=== PATIENT | male | born 1980 | race Caucasian/White ===

== ENCOUNTER 2021-06-02 13:49 | Emergency (ER) | payer BC, OTHER ==
--- NOTE | 2021-06-02 15:04 | EDM.PDOC ---
ED HPI GENERAL MEDICAL PROBLEM - General Chief Complaint: Respiratory Problem Stated Complaint: COVID SX Time Seen by Provider: 06/02/21 14:06 Source of Information: Reports: Patient History Limitations: Reports: No Limitations - History of Present Illness INITIAL COMMENTS - FREE TEXT/NARRATIVE: 41-year-old male presents the emergency department with complaints of Covid-like symptoms that started 7 days ago. Patient states that he initially developed a low-grade temp of 100.2 and a cough. However cough has progressed to becoming more paroxysmal and he has coughed so much that he states his chest and abdomen are sore. He also notes sinus drainage however no sinus congestion. States he has developed some issues with diarrhea. Whenever he eats he states he has to go to the bathroom after with watery diarrhea stools. He has had some nausea however no vomiting. Also complains of generalized weakness. Patient states that prior to this he was otherwise healthy. He did not receive his Covid vaccines. His primary care provider was Dr. Villafana however Dr. Villafana has retired and he has not sought out a new primary care provider. He is not a smoker. - Related Data Allergies Allergy/AdvReac Type Severity Reaction Status Date / Time clarithromycin [From Biaxin] Allergy Stomach Verified 06/02/21 14:18 Upset Home Meds: Home Meds Benzonatate [Tessalon Perle] 100 mg PO TID PRN #12 capsule 06/02/21 [Rx] Ondansetron [Zofran ODT] 4 mg PO Q6H PRN #12 tab.dis 06/02/21 [Rx] dexAMETHasone [Dexamethasone] 6 mg PO DAILY #15 tablet 06/02/21 [Rx] Past Medical History - Past Health History Medical/Surgical History: Denies Medical/Surgical History HEENT History: Reports: Impaired Vision Other HEENT History: wears eyeglasses, dental surgery (wisdom teeth removal). Social & Family History - Tobacco Use Tobacco Use Status *Q: Never Tobacco User Second Hand Smoke Exposure: No - Caffeine Use Caffeine Use: Reports: Coffee - Recreational Drug Use Recreational Drug Use: No ED ROS GENERAL - Review of Systems Review Of Systems: Comprehensive ROS is negative, except as noted in HPI. ED EXAM, GENERAL - Physical Exam Exam: See Below Exam Limited By: No Limitations General Appearance: Alert, WD/WN, Mild Distress Ears: Normal External Exam, Hearing Grossly Normal Nose: Normal Inspection Throat/Mouth: Normal Inspection, Normal Lips, Normal Voice, No Airway Compromise Head: Atraumatic Neck: Normal Inspection, Supple Respiratory/Chest: No Respiratory Distress, Lungs Clear, No Accessory Muscle Use, Chest Non-Tender (Tender with palpation and cough), Decreased Breath Sounds. No: Normal Breath Sounds Cardiovascular: Normal Peripheral Pulses, Regular Rate, Rhythm, No Edema, No Murmur Peripheral Pulses: 2+: Radial (L), Radial (R) GI/Abdominal: Normal Bowel Sounds, Soft, Non-Tender, No Distention (Male) Exam: Deferred Rectal (Males) Exam: Deferred Back Exam: Normal Inspection Extremities: Normal Inspection Neurological: Alert, Oriented, Normal Cognition Psychiatric: Normal Affect, Normal Mood Skin Exam: Warm, Dry, Intact, Normal Color, No Rash Lymphatic: No Adenopathy Course - Vital Signs Text/Narrative:: As stated above, patient presents here for testing for Covid. Symptoms started 8 days ago. He is hemodynamically stable with O2 saturations at 96% on room air. Upon exam, patient does have a paroxysmal cough with any inspiration. Lung sounds are diminished throughout. I have ordered for the patient to have Covid testing completed. Last Recorded V/S: Last Vital Signs Temp Pulse 98 06/02/21 14:15 Resp 18 06/02/21 14:15 BP 123/89 06/02/21 14:15 Pulse Ox 96 06/02/21 14:15 - Orders/Labs/Meds Labs: Laboratory Tests 06/02/21 Range/Units 14:25 SARS-CoV-2 RNA (NATHANIEL) Positive H (NEGATIVE) - Re-Assessments/Exams Free Text/Narrative Re-Assessment/Exam: 06/02/21 15:34 Patient Covid swab is positive for Covid. He will be discharged home with prescriptions for Zofran ODT, Tessalon Perles, and dexamethasone. While in the emergency department he will receive an albuterol inhaler as well as incentive spirometer and Acapella. Departure - Departure Time of Disposition: 15:35 Disposition: Home, Self-Care 01 Condition: Good Clinical Impression: COVID-19 - Discharge Information Prescriptions: dexAMETHasone [Dexamethasone] 6 mg PO DAILY #15 tablet Benzonatate [Tessalon Perle] 100 mg PO TID PRN #12 capsule PRN Reason: Cough Ondansetron [Zofran ODT] 4 mg PO Q6H PRN #12 tab.dis PRN Reason: Nausea/Vomiting Instructions: COVID-19: Quarantine vs. Isolation - [facility] [place] (08/31/2020) Referrals: Katelyn Conteh, [facility] [Primary Care Provider] - Forms: ED Department Discharge Additional Instructions: You were seen in the emergency department today with Covid type symptoms. Covid swab was completed and you did test positive for Covid. While you are in the emergency department you did receive an albuterol inhaler. You may use this 2 puffs every 2-4 hours as needed for shortness of breath. Keep in mind that if you are using this every 2 hours the side effect of the medication is racing heart. Also recommend that you use the incentive spirometer and Acapella as instructed by the respiratory therapist. I have sent prescription to your pharmacy for a medication called Zofran ODT. This medication is used to treat nausea and vomiting. You may take 1 tab every 6 hours as needed. Do not swallow this medication whole. You place it under your tongue and allow to dissolve and then wait approximately 30 minutes before eating and drinking. I have also sent a medication prescription for Tessalon Perles. This medication is used to treat cough. You may take 1-2 tabs up to 3 times daily for your cough. Recommend taking 1 at bedtime to allow restful sleep. I have also sent a medication that is a steroid called dexamethasone to your pharmacy. You will need to take 1-1/2 tabs daily for the next 10 days. This medication will likely help to decrease the inflammation associated with Covid. Should your condition worsen or change or you develop significant shortness of breath, do not hesitate returning to the emergency department. You will need to quarantine for 10 days time from the onset of your symptoms. Also recommend that you receive the Covid vaccine in about 5 weeks. Sepsis Event Note (ED) - Evaluation Sepsis Screening Result: No Definite Risk - Focused Exam Vital Signs: Vital Signs Pulse Resp BP Pulse Ox 06/02/21 14:15 98 18 123/89 96
[2021-06-02] MEDS ORDERED: Albuterol 6.7 GM Inhaler INH ONE (15:35)
== END 2021-06-02 16:00 | disposition home or self-care (01) ==
LOC: SUPCPDRO 13:49 → JD.ED 13:49
DX: U07.1 COVID-19 (principal); Z88.1 Allergy status to other antibiotic agents
CPT/HCPCS: 87635; 94640; 94667; 99284; A9270; 99283; U0002

== ENCOUNTER 2021-06-05 08:01 | Inpatient (IN) | payer BC ==
--- NOTE | 2021-06-05 08:44 | EDM.PDOC ---
ED HPI GENERAL MEDICAL PROBLEM - General Chief Complaint: Respiratory Problem Stated Complaint: COVID + SOB Time Seen by Provider: 06/05/21 08:02 Source of Information: Reports: Patient History Limitations: Reports: No Limitations - History of Present Illness INITIAL COMMENTS - FREE TEXT/NARRATIVE: 41-year-old male presents the emergency department with complaints of worsening Covid symptoms. Patient was seen in this emergency department on 06/02/2021 and diagnosed with Covid. He states that his symptoms initially started on 05/26/2021. He was subsequently discharged to home with prescriptions for dexamethasone 6 mg daily, albuterol inhaler, Tessalon Perles and Zofran. Patient states that he has not been febrile. His appetite has been fair. He states that he no longer is needing the Zofran for nausea and vomiting. He states his diarrhea has resolved however his shortness of breath and coughing has progressively worsened. He states that last night he woke and went down to sleep on the recliner. States he used his albuterol inhaler 3 times and was still unable to catch his breath. He then went to lay on the floor in the prone position but states he became more short of breath. He presents to the ER this morning. Initially at the time of triage after ambulating into the room, his O2 saturations were 77% on room air. Once he was sitting there and resting O2 saturations came up to 86% on room air. Triage nurse then elected to place the patient on 2 L of oxygen per nasal cannula. Patient does admit to a history of smoking however he stopped back in 2014. He states he is otherwise healthy and does not take any prescription medications. His primary care provider was Dr. Villafana who has since retired and he has not found a new primary care provider. Chest Pain Score (Numeric/FACES): 5 - Related Data Allergies Allergy/AdvReac Type Severity Reaction Status Date / Time clarithromycin [From Biaxin] Allergy Stomach Verified 06/05/21 08:22 Upset Home Meds: Home Meds Benzonatate [Tessalon Perle] 100 mg PO TID PRN #12 capsule 06/02/21 [Rx] Ondansetron [Zofran ODT] 4 mg PO Q6H PRN #12 tab.dis 06/02/21 [Rx] dexAMETHasone [Dexamethasone] 6 mg PO DAILY #15 tablet 06/02/21 [Rx] Albuterol Sulfate [Proair Digihaler] 2 puff INH ASDIRECTED 06/05/21 [History] Past Medical History - Past Health History Medical/Surgical History: Denies Medical/Surgical History HEENT History: Reports: Impaired Vision Other HEENT History: wears eyeglasses, dental surgery (wisdom teeth removal). - Infectious Disease History Infectious Disease History: Reports: Novel Coronavirus Social & Family History - Caffeine Use Caffeine Use: Reports: Coffee ED ROS GENERAL - Review of Systems Review Of Systems: Comprehensive ROS is negative, except as noted in HPI. ED EXAM, GENERAL - Physical Exam Exam: See Below Exam Limited By: No Limitations General Appearance: Alert, WD/WN, Mild Distress Ears: Normal External Exam, Hearing Grossly Normal Nose: Normal Inspection Throat/Mouth: Normal Inspection, Normal Lips, Normal Voice, No Airway Compromise Head: Atraumatic Neck: Normal Inspection, Supple Respiratory/Chest: No Accessory Muscle Use, Chest Non-Tender, Respiratory Distress, Decreased Breath Sounds, Crackles (Posterior) Cardiovascular: Normal Peripheral Pulses, Regular Rate, Rhythm, No Edema, No Murmur Peripheral Pulses: 2+: Radial (L), Radial (R) GI/Abdominal: Normal Bowel Sounds, Soft, Non-Tender, No Distention (Male) Exam: Deferred Rectal (Males) Exam: Deferred Back Exam: Normal Inspection, Full Range of Motion Extremities: Normal Inspection Neurological: Alert, Oriented, Normal Cognition Psychiatric: Normal Affect, Normal Mood Skin Exam: Warm, Dry, Intact, Normal Color, No Rash Lymphatic: No Adenopathy #1 Interpretation EKG Date: 06/05/21 Time: 10:03 Rhythm: NSR Rate (Beats/Min): 64 [place]: Normal P-Wave: Present QRS: Normal ST-T: Normal QT: Normal Comparison: NA - No Prior EKG EKG Interpretation Comments: Per Dr. Goodman interpretation: Sinus rhythm at 64 bpm; short [place] interval; no obvious accessory pathway. Course - Vital Signs Text/Narrative:: As stated above, patient presents with worsening Covid symptoms. Main complaint is progressively worsening shortness of breath and cough. Upon exam, the patient is awake and alert in bed however he is dyspneic at rest. O2 saturations on 2 L of oxygen per nasal cannula are 96%. He does have crackles noted bilaterally and the remainder of his physical exam is otherwise unremarkable. He is afebrile. Will obtain a portable chest x-ray, labs to include CBC, BMP, hepatic function studies, LDH, ferritin, D-dimer, PT/INR and PTT. Last Recorded V/S: Last Vital Signs Temp 97.9 F 06/05/21 13:46 Pulse 72 06/05/21 13:46 Resp 18 06/05/21 13:46 BP 136/80 06/05/21 13:46 Pulse Ox 92 L 06/05/21 13:46 - Orders/Labs/Meds Orders: Active Orders 24 hr Category Date Time Status PROCALCITONIN [REF] Stat Lab 06/05/21 08:55 Received Isolation [COMM] Stat Oth 06/05/21 08:43 Ordered Medication Orders Acetaminophen (Acetaminophen 325 Mg Tab) 650 mg PO Q4H PRN PRN Reason: Pain (Mild 1-3)/fever Albuterol (Albuterol 6.7 Gm Inhaler) 0 gm INH Q2H PRN PRN Reason: SOB/Wheezing Albuterol/Ipratropium (Albuterol/Ipratropium 3.0-0.5 Mg/3 Ml Neb Soln) 3 ml NEB QIDRT PRN PRN Reason: Shortness Of Breath/wheezing Dexamethasone (Dexamethasone 4 Mg Tab) 6 mg PO DAILY ARMIDA Stop: 06/14/21 09:01 Docusate Sodium (Docusate Sodium 100 Mg Cap) 100 mg PO Q12H PRN PRN Reason: Constipation Enoxaparin Sodium (Enoxaparin 40 Mg/0.4 Ml Syringe) 40 mg SUBCUT DAILY [facility] [place] Famotidine (Famotidine 20 Mg Tab) 20 mg PO BID [facility] [place] Remdesivir 100 mg/ Sodium (Chloride) 100 mls @ 100 mls/hr IV Q24H ARMIDA Stop: 06/09/21 13:59 Ondansetron HCl (Ondansetron 4 Mg/2 Ml Sdv) 4 mg IV Q6H PRN PRN Reason: Nausea/Vomiting Zinc Sulfate (Zinc Sulfate 220 Mg Cap) 220 mg PO DAILY [facility] [place] Labs: Laboratory Tests 06/05/21 06/05/21 06/05/21 Range/Units 08:55 08:55 08:55 WBC 11.45 H (4.23-9.07) K/mm3 RBC 5.32 (4.63-6.08) M/mm3 Hgb 14.8 (13.7-17.5) gm/dl Hct 44.3 (40.1-51.0) % MCV 83.3 (79.0-92.2) fl MCH 27.8 (25.7-32.2) pg MCHC 33.4 (32.2-35.5) g/dl RDW Std Deviation 38.8 (35.1-43.9) fL Plt Count 189 (163-337) K/mm3 MPV 10.9 (9.4-12.3) fl Neut % (Auto) 91.9 H (34.0-67.9) % Lymph % (Auto) 4.2 L (21.8-53.1) % [place] % (Auto) 3.5 L (5.3-12.2) % Eos % (Auto) 0 L (0.8-7.0) Baso % (Auto) 0.1 (0.1-1.2) % Neut # (Auto) 10.53 H (1.78-5.38) K/mm3 Lymph # (Auto) 0.48 L (1.32-3.57) K/mm3 [place] # (Auto) 0.40 (0.30-0.82) K/mm3 Eos # (Auto) 0.00 L (0.04-0.54) K/mm3 Baso # (Auto) 0.01 (0.01-0.08) K/mm3 PT 10.9 (9.7-12.0) SECONDS INR 0.98 APTT 25.8 (21.7-31.4) SECONDS D-Dimer, Quantitative (0.19-0.50) mg/L Sodium (136-145) mEq/L Potassium (3.5-5.1) mEq/L Chloride (98-107) mEq/L Carbon Dioxide (21-32) mEq/L Anion Gap (5-15) BUN (7-18) mg/dL Creatinine (0.7-1.3) mg/dL Est Cr Clr Drug Dosing mL/min Estimated GFR (MDRD) (>60) mL/min BUN/Creatinine Ratio (14-18) Glucose (70-99) mg/dL Calcium (8.5-10.1) mg/dL Ferritin 2383 H (26-388) ng/ml Total Bilirubin (0.2-1.0) mg/dL Direct Bilirubin (0.0-0.2) mg/dl Indirect Bilirubin AST (15-37) U/L ALT (16-63) U/L Alkaline Phosphatase (46-116) U/L Lactate Dehydrogenase (85-227) U/L C-Reactive Protein (<1.0) mg/dL Total Protein (6.4-8.2) g/dl Albumin (3.4-5.0) g/dl Globulin gm/dL Albumin/Globulin Ratio (1-2) 06/05/21 06/05/21 Range/Units 08:55 08:55 WBC (4.23-9.07) K/mm3 RBC (4.63-6.08) M/mm3 Hgb (13.7-17.5) gm/dl Hct (40.1-51.0) % MCV (79.0-92.2) fl MCH (25.7-32.2) pg MCHC (32.2-35.5) g/dl RDW Std Deviation (35.1-43.9) fL Plt Count (163-337) K/mm3 MPV (9.4-12.3) fl Neut % (Auto) (34.0-67.9) % Lymph % (Auto) (21.8-53.1) % [place] % (Auto) (5.3-12.2) % Eos % (Auto) (0.8-7.0) Baso % (Auto) (0.1-1.2) % Neut # (Auto) (1.78-5.38) K/mm3 Lymph # (Auto) (1.32-3.57) K/mm3 [place] # (Auto) (0.30-0.82) K/mm3 Eos # (Auto) (0.04-0.54) K/mm3 Baso # (Auto) (0.01-0.08) K/mm3 PT (9.7-12.0) SECONDS INR APTT (21.7-31.4) SECONDS D-Dimer, Quantitative 0.29 (0.19-0.50) mg/L Sodium 132 L (136-145) mEq/L Potassium 4.6 (3.5-5.1) mEq/L Chloride 96 L (98-107) mEq/L Carbon Dioxide 30 (21-32) mEq/L Anion Gap 10.6 (5-15) BUN 20 H (7-18) mg/dL Creatinine 1.0 (0.7-1.3) mg/dL Est Cr Clr Drug Dosing 99.36 mL/min Estimated GFR (MDRD) > 60 (>60) mL/min BUN/Creatinine Ratio 20.0 H (14-18) Glucose 159 H (70-99) mg/dL Calcium 8.5 (8.5-10.1) mg/dL Ferritin (26-388) ng/ml Total Bilirubin 0.4 (0.2-1.0) mg/dL Direct Bilirubin 0.10 (0.0-0.2) mg/dl Indirect Bilirubin 0.30 AST 31 (15-37) U/L ALT 54 (16-63) U/L Alkaline Phosphatase 55 (46-116) U/L Lactate Dehydrogenase 412 H (85-227) U/L C-Reactive Protein 17.3 H* (<1.0) mg/dL Total Protein 7.8 (6.4-8.2) g/dl Albumin 3.2 L (3.4-5.0) g/dl Globulin 4.6 gm/dL Albumin/Globulin Ratio 0.7 L (1-2) Meds: Medications Generic Name Dose Route Start Last Admin Trade Name Freq PRN Reason Stop Dose Admin Acetaminophen 650 mg 06/05/21 12:12 Acetaminophen 325 Mg Tab PO Q4H PRN Pain (Mild 1-3)/fever Albuterol 0 gm 06/05/21 12:12 Albuterol 6.7 Gm Inhaler INH Q2H PRN SOB/Wheezing Albuterol/Ipratropium 3 ml 06/05/21 12:12 Albuterol/Ipratropium 3.0-0.5 Mg/3 Ml Neb Soln NEB QIDRT PRN Shortness Of Breath/wheezing Dexamethasone 6 mg 06/05/21 13:00 Dexamethasone 4 Mg Tab PO 06/14/21 09:01 DAILY ARMIDA Docusate Sodium 100 mg 06/05/21 12:12 Docusate Sodium 100 Mg Cap PO Q12H PRN Constipation Enoxaparin Sodium 40 mg 06/06/21 09:00 Enoxaparin 40 Mg/0.4 Ml Syringe SUBCUT DAILY ARMIDA Famotidine 20 mg 06/05/21 13:00 Famotidine 20 Mg Tab PO BID ARMIDA Remdesivir 100 mg/ Sodium 100 mls @ 100 mls/hr 06/06/21 13:00 Chloride IV 06/09/21 13:59 Q24H ARMIDA Ondansetron HCl 4 mg 06/05/21 12:12 Ondansetron 4 Mg/2 Ml Sdv IV Q6H PRN Nausea/Vomiting Zinc Sulfate 220 mg 06/05/21 13:00 Zinc Sulfate 220 Mg Cap PO DAILY ARMIDA Discontinued Medications Generic Name Dose Route Start Last Admin Trade Name Freq PRN Reason Stop Dose Admin Remdesivir 200 mg/ Sodium 250 mls @ 250 mls/hr 06/05/21 13:00 Chloride IV 06/05/21 13:59 ONETIME ONE - Re-Assessments/Exams Free Text/Narrative Re-Assessment/Exam: 06/05/21 09:21 Portable view of the chest reveals scattered infiltrates bilaterally consistent with Covid pneumonia. Formal radiologist report is pending 06/05/21 09:59 Radiologist impression frontal view of the chest: 1. Patchy areas of increased density on both sides of the chest is an interval change from prior exam. Findings are suspicious for possible Covid pneumonia. Please correlate. 06/05/21 10:46 Hematology reveals a WBC of 11.45, hemoglobin 14.8, hematocrit 44.3, platelet count 189 Coagulation reveals a pro time of 10.9, INR 0.98, PTT 25.8 Chemistry reveals a sodium of 132, potassium 4.6, chloride 96, anion gap 10.6, BUN 20, creatinine 1.0, glucose 159, C-reactive protein 17.3 06/05/21 12:01 I feel that this patient does need to be admitted to the hospital due to his increasing oxygen needs due to Covid. I have spoken to the hospitalist, , and he has agreed to accept care of this patient. Departure - Departure Time of Disposition: 12:40 Disposition: Admitted As Inpatient 66 Condition: Good (covid ) Clinical Impression: Pneumonia due to COVID-19 virus, Hypoxia - Discharge Information Sepsis Event Note (ED) - Focused Exam Vital Signs: Vital Signs Temp Pulse Resp BP Pulse Ox 06/05/21 08:17 97.7 F 70 18 141/90 H 77 L - My Orders Last 24 Hours: My Active Orders 06/05/21 08:43 Isolation [COMM] Stat 06/05/21 08:55 PROCALCITONIN [REF] Stat - Assessment/Plan Last 24 Hours: My Active Orders 06/05/21 08:43 Isolation [COMM] Stat 06/05/21 08:55 PROCALCITONIN [REF] Stat
--- NOTE | 2021-06-05 09:56 | CR ---
Chest: Frontal view of the chest was obtained. Comparison: Prior chest x-ray of 08/11/14. Heart size and mediastinum are normal. Patchy areas of increased density are seen on both sides of the chest. Bony structures show nothing acute. Impression: 1. Patchy areas of increased density on both sides of the chest as an interval change from prior exam. Findings are suspicious for possible COVID pneumonia. Please correlate. Diagnostic code #3
--- NOTE | 2021-06-05 11:55 | PCM.HP.2 ---
H&P History of Present Illness - General Date of Service: 06/05/21 Admit Problem/Dx: Admission Diagnosis/Problem Admission Diagnosis/Problem Hypoxia Source of Information: Patient, Old Records, Provider, RN, RN Notes Reviewed History Limitations: Reports: No Limitations Chest Pain Score (Numeric/FACES): 5 - Related Data Allergies/Adverse Reactions: Allergies Allergy/AdvReac Type Severity Reaction Status Date / Time clarithromycin [From Biaxin] Allergy Stomach Verified 06/05/21 08:22 Upset Home Medications: Home Meds Benzonatate [Tessalon Perle] 100 mg PO TID PRN #12 capsule 06/02/21 [Rx] Ondansetron [Zofran ODT] 4 mg PO Q6H PRN #12 tab.dis 06/02/21 [Rx] dexAMETHasone [Dexamethasone] 6 mg PO DAILY #15 tablet 06/02/21 [Rx] Albuterol Sulfate [Proair Digihaler] 2 puff INH ASDIRECTED 06/05/21 [History] Past Medical History - Past Health History Medical/Surgical History: Denies Medical/Surgical History HEENT History: Reports: Impaired Vision Other HEENT History: wears eyeglasses, dental surgery (wisdom teeth removal). - Infectious Disease History Infectious Disease History: Reports: Novel Coronavirus Social & Family History - Caffeine Use Caffeine Use: Reports: Coffee Exam - Vital Signs Vital Signs: Last Vital Signs Temp 97.7 F 06/05/21 08:17 Pulse 70 06/05/21 08:17 Resp 18 06/05/21 08:17 BP 141/90 H 06/05/21 08:17 Pulse Ox 77 L 06/05/21 08:17 Weight: 214 lb - Patient Data Lab Results Last 24 hrs: Laboratory Results - last 24 hr 06/05/21 06/05/21 06/05/21 Range/Units 08:55 08:55 08:55 WBC 11.45 H (4.23-9.07) K/mm3 RBC 5.32 (4.63-6.08) M/mm3 Hgb 14.8 (13.7-17.5) gm/dl Hct 44.3 (40.1-51.0) % MCV 83.3 (79.0-92.2) fl MCH 27.8 (25.7-32.2) pg MCHC 33.4 (32.2-35.5) g/dl RDW Std Deviation 38.8 (35.1-43.9) fL Plt Count 189 (163-337) K/mm3 MPV 10.9 (9.4-12.3) fl Neut % (Auto) 91.9 H (34.0-67.9) % Lymph % (Auto) 4.2 L (21.8-53.1) % [place] % (Auto) 3.5 L (5.3-12.2) % Eos % (Auto) 0 L (0.8-7.0) Baso % (Auto) 0.1 (0.1-1.2) % Neut # (Auto) 10.53 H (1.78-5.38) K/mm3 Lymph # (Auto) 0.48 L (1.32-3.57) K/mm3 [place] # (Auto) 0.40 (0.30-0.82) K/mm3 Eos # (Auto) 0.00 L (0.04-0.54) K/mm3 Baso # (Auto) 0.01 (0.01-0.08) K/mm3 PT 10.9 (9.7-12.0) SECONDS INR 0.98 APTT 25.8 (21.7-31.4) SECONDS D-Dimer, Quantitative 0.29 (0.19-0.50) mg/L Sodium (136-145) mEq/L Potassium (3.5-5.1) mEq/L Chloride (98-107) mEq/L Carbon Dioxide (21-32) mEq/L Anion Gap (5-15) BUN (7-18) mg/dL Creatinine (0.7-1.3) mg/dL Est Cr Clr Drug Dosing mL/min Estimated GFR (MDRD) (>60) mL/min BUN/Creatinine Ratio (14-18) Glucose (70-99) mg/dL Calcium (8.5-10.1) mg/dL Total Bilirubin (0.2-1.0) mg/dL AST (15-37) U/L ALT (16-63) U/L Alkaline Phosphatase (46-116) U/L C-Reactive Protein (<1.0) mg/dL Total Protein (6.4-8.2) g/dl Albumin (3.4-5.0) g/dl Globulin gm/dL Albumin/Globulin Ratio (1-2) 06/05/21 Range/Units 08:55 WBC (4.23-9.07) K/mm3 RBC (4.63-6.08) M/mm3 Hgb (13.7-17.5) gm/dl Hct (40.1-51.0) % MCV (79.0-92.2) fl MCH (25.7-32.2) pg MCHC (32.2-35.5) g/dl RDW Std Deviation (35.1-43.9) fL Plt Count (163-337) K/mm3 MPV (9.4-12.3) fl Neut % (Auto) (34.0-67.9) % Lymph % (Auto) (21.8-53.1) % [place] % (Auto) (5.3-12.2) % Eos % (Auto) (0.8-7.0) Baso % (Auto) (0.1-1.2) % Neut # (Auto) (1.78-5.38) K/mm3 Lymph # (Auto) (1.32-3.57) K/mm3 [place] # (Auto) (0.30-0.82) K/mm3 Eos # (Auto) (0.04-0.54) K/mm3 Baso # (Auto) (0.01-0.08) K/mm3 PT (9.7-12.0) SECONDS INR APTT (21.7-31.4) SECONDS D-Dimer, Quantitative (0.19-0.50) mg/L Sodium 132 L (136-145) mEq/L Potassium 4.6 (3.5-5.1) mEq/L Chloride 96 L (98-107) mEq/L Carbon Dioxide 30 (21-32) mEq/L Anion Gap 10.6 (5-15) BUN 20 H (7-18) mg/dL Creatinine 1.0 (0.7-1.3) mg/dL Est Cr Clr Drug Dosing 99.36 mL/min Estimated GFR (MDRD) > 60 (>60) mL/min BUN/Creatinine Ratio 20.0 H (14-18) Glucose 159 H (70-99) mg/dL Calcium 8.5 (8.5-10.1) mg/dL Total Bilirubin 0.4 (0.2-1.0) mg/dL AST 31 (15-37) U/L ALT 54 (16-63) U/L Alkaline Phosphatase 55 (46-116) U/L C-Reactive Protein 17.3 H* (<1.0) mg/dL Total Protein 7.8 (6.4-8.2) g/dl Albumin 3.2 L (3.4-5.0) g/dl Globulin 4.6 gm/dL Albumin/Globulin Ratio 0.7 L (1-2) Result Diagrams: 06/05/21 08:55 06/05/21 08:55 Sepsis Event Note - Focused Exam Vital Signs: Vital Signs Temp Pulse Resp BP Pulse Ox 06/05/21 08:17 97.7 F 70 18 141/90 H 77 L Problem List Initiated/Reviewed/Updated: Yes Orders Last 24hrs: Active Orders 24 hr Category Date Time Status Admission Status [Patient Status] [ADT] Routine ADT 06/05/21 11:51 Active BASIC METABOLIC PANEL,BMP [CHEM] Stat Lab 06/05/21 08:55 Results C-REACTIVE PROTEIN [CHEM] Stat Lab 06/05/21 08:55 Results FERRITIN [CHEM] Routine Lab 06/05/21 08:55 Received HEPATIC FUNCTION PANEL,HFP [CHEM] Stat Lab 06/05/21 08:55 Results LACTATE DEHYDROGENASE,LDH [CHEM] Stat Lab 06/05/21 08:55 Results PROCALCITONIN [REF] Stat Lab 06/05/21 08:55 Received Isolation [COMM] Stat Oth 06/05/21 08:43 Ordered - Mortality Measure Prognosis:: Good
[2021-06-05] MEDS ORDERED: Docusate Sodium 100 MG Cap PO PRN (12:12)
[2021-06-05] MEDS ORDERED: Acetaminophen 325 MG Tab PO PRN (12:12)
[2021-06-05] MEDS ORDERED: Albuterol/Ipratropium 3.0-0.5 MG/3 ML Neb Soln NEB PRN (12:12)
[2021-06-05] MEDS ORDERED: Ondansetron 4 MG/2 ML SDV IV PRN (12:12)
[2021-06-05] MEDS ORDERED: Dexamethasone 4 MG Tab PO SCH (13:00)
[2021-06-05] MEDS ORDERED: Zinc Sulfate 220 MG Cap PO SCH (13:00)
[2021-06-05] MEDS ORDERED: Famotidine 20 MG Tab PO SCH (13:00)
[2021-06-05] MEDS ORDERED: REMDESIVIR 200 MG in Sodium Chloride 0.9% 250 ML IV ONE (13:00)
--- NOTE | 2021-06-05 13:05 | PCM.HP.2 ---
H&P History of Present Illness - General Date of Service: 06/05/21 Admit Problem/Dx: Admission Diagnosis/Problem Admission Diagnosis/Problem Hypoxia Source of Information: Patient, Old Records, Provider, RN, RN Notes Reviewed History Limitations: Reports: No Limitations - History of Present Illness Initial Comments - Free Text/Narative: This is a 41-year-old male who presents to the ED with worsening COVID-19 pneumonia symptoms. His symptoms began on 05/27/21. He had previously been seen in the ED on 06/02/21 at which time he was diagnosed with COVID-19. At his ED visit on 06/02/21 he was started on dexamethasone 6mg daily, albuterol MDI, Tessalon Pearls, and Zofran. At that time he reported symptoms of nausea, vomiting, diarrhea, shortness of breath, and coughing. Today he reports that his nausea/vomiting have subsided, but his cough and shortness of breath have prog ressively worsened. Upon arrival to the ED his oxygen saturation was 86% at rest and 77% with ambu lation. He was placed on 2 L oxygen. Oxygen saturation improved to 96% on 2L. In the ED, he is afebrile, dyspneic at rest, and lung sounds were noted to have crackles bilaterally. Labs were obtained and demonstrated a WBC of 11.45 with an elevated neutrophil level of 91.9%. Lymphocyte level low of 4.2%. Hemoglobin 14.8. D-dimer 0.29. CRP elevated at 17.3. Sodium 132. Potassium 4.6. Chloride 96. BUN 20. Creatinine 1.0. GFR estimated to be >60. AST 31. ALT 54. Alkaline phosphatase 55. Albumin 2.7. LDH 412. Lactic acid 1.0. Ferritin 2383. Chest x- ray was obtained which revealed 1. Patchy areas of increased density on both sides of the chest is an interval change from prior exam. Findings are suspicious for possible COVID pneumonia. Of note, the patient is a former smoker- quit in 2004. He is subsequently admitted to the floor on telemetry and continuous pulse oximetry for further management of his COVID-19 pneumonia symptoms. Chest Pain Score (Numeric/FACES): 5 - Related Data Allergies/Adverse Reactions: Allergies Allergy/AdvReac Type Severity Reaction Status Date / Time clarithromycin [From Biaxin] Allergy Stomach Verified 06/05/21 08:22 Upset Home Medications: Home Meds Benzonatate [Tessalon Perle] 100 mg PO TID PRN #12 capsule 06/02/21 [Rx] Ondansetron [Zofran ODT] 4 mg PO Q6H PRN #12 tab.dis 06/02/21 [Rx] dexAMETHasone [Dexamethasone] 6 mg PO DAILY #15 tablet 06/02/21 [Rx] Albuterol Sulfate [Proair Digihaler] 2 puff INH ASDIRECTED 06/05/21 [History] Past Medical History - Past Health History Medical/Surgical History: Denies Medical/Surgical History HEENT History: Reports: Impaired Vision Other HEENT History: wears eyeglasses, dental surgery (wisdom teeth removal). - Infectious Disease History Infectious Disease History: Reports: Novel Coronavirus Social & Family History - Caffeine Use Caffeine Use: Reports: Coffee H&P Review of Systems - Review of Systems: Review Of Systems: See Below General: Reports: Weakness, Fatigue. Denies: Fever, Chills, Malaise HEENT: Reports: Rhinitis. Denies: Headaches, Sore Throat Pulmonary: Reports: Shortness of Breath, Pleuritic Chest Pain, Cough, Sputum (minimal ). Denies: Wheezing, Hemoptysis Cardiovascular: Reports: Dyspnea on Exertion. Denies: Chest Pain, Palpitations, Edema, Lightheadedness Gastrointestinal: Reports: No Symptoms. Denies: Abdominal Pain, Constipation, Diarrhea, Nausea, Vomiting Genitourinary: Reports: No Symptoms. Denies: Pain Musculoskeletal: Reports: No Symptoms Skin: Reports: No Symptoms. Denies: Cyanosis Psychiatric: Reports: No Symptoms. Denies: Confusion Neurological: Reports: No Symptoms. Denies: Confusion, Dizziness, Headache, Numbness, Pre-Existing Deficit, Seizure, Syncope, Tingling, Trouble Speaking, Difficulty Walking, Weakness, Gait Disturbance Hematologic/Lymphatic: Reports: No Symptoms Immunologic: Reports: No Symptoms Exam - Exam Exam: See Below - Vital Signs Vital Signs: Last Vital Signs Temp 97.7 F 06/05/21 08:17 Pulse 70 06/05/21 08:17 Resp 18 06/05/21 08:17 BP 141/90 H 06/05/21 08:17 Pulse Ox 77 L 06/05/21 08:17 Weight: 214 lb - Exam Quality Assessment: Supplemental Oxygen, DVT Prophylaxis. No: Urinary Catheter General: Alert, Oriented, Cooperative, Mild Distress HEENT: Conjunctiva Clear, Mucosa Moist & [place], Pupils Equal Neck: Supple, Trachea Midline Lungs: Normal Respiratory Effort, Decreased Breath Sounds. No: Crackles, Wheezing Cardiovascular: Regular Rate, Regular Rhythm GI/Abdominal Exam: Normal Bowel Sounds, Soft, Non-Tender, No Distention (Male) Exam: Deferred Rectal (Males) Exam: Deferred Back Exam: Normal Inspection, Full Range of Motion Extremities: Normal Inspection, Normal Range of Motion, Non-Tender, No Pedal Edema Peripheral Pulses: 2+: Radial (L), Radial (R), Dorsalis Pedis (L), Dorsalis Pedis (R) Skin: Warm, Dry, Intact Neurological: Cranial Nerves Intact (grossly) Neuro Extensive - Mental Status: Alert, Oriented x3, Normal Mood/Affect, Normal Cognition Psychiatric: Alert, Normal Affect, Normal Mood - Patient Data Lab Results Last 24 hrs: Laboratory Results - last 24 hr 06/05/21 06/05/21 06/05/21 Range/Units 08:55 08:55 08:55 WBC 11.45 H (4.23-9.07) K/mm3 RBC 5.32 (4.63-6.08) M/mm3 Hgb 14.8 (13.7-17.5) gm/dl Hct 44.3 (40.1-51.0) % MCV 83.3 (79.0-92.2) fl MCH 27.8 (25.7-32.2) pg MCHC 33.4 (32.2-35.5) g/dl RDW Std Deviation 38.8 (35.1-43.9) fL Plt Count 189 (163-337) K/mm3 MPV 10.9 (9.4-12.3) fl Neut % (Auto) 91.9 H (34.0-67.9) % Lymph % (Auto) 4.2 L (21.8-53.1) % [place] % (Auto) 3.5 L (5.3-12.2) % Eos % (Auto) 0 L (0.8-7.0) Baso % (Auto) 0.1 (0.1-1.2) % Neut # (Auto) 10.53 H (1.78-5.38) K/mm3 Lymph # (Auto) 0.48 L (1.32-3.57) K/mm3 [place] # (Auto) 0.40 (0.30-0.82) K/mm3 Eos # (Auto) 0.00 L (0.04-0.54) K/mm3 Baso # (Auto) 0.01 (0.01-0.08) K/mm3 PT 10.9 (9.7-12.0) SECONDS INR 0.98 APTT 25.8 (21.7-31.4) SECONDS D-Dimer, Quantitative 0.29 (0.19-0.50) mg/L Sodium (136-145) mEq/L Potassium (3.5-5.1) mEq/L Chloride (98-107) mEq/L Carbon Dioxide (21-32) mEq/L Anion Gap (5-15) BUN (7-18) mg/dL Creatinine (0.7-1.3) mg/dL Est Cr Clr Drug Dosing mL/min Estimated GFR (MDRD) (>60) mL/min BUN/Creatinine Ratio (14-18) Glucose (70-99) mg/dL Calcium (8.5-10.1) mg/dL Total Bilirubin (0.2-1.0) mg/dL AST (15-37) U/L ALT (16-63) U/L Alkaline Phosphatase (46-116) U/L C-Reactive Protein (<1.0) mg/dL Total Protein (6.4-8.2) g/dl Albumin (3.4-5.0) g/dl Globulin gm/dL Albumin/Globulin Ratio (1-2) 06/05/21 Range/Units 08:55 WBC (4.23-9.07) K/mm3 RBC (4.63-6.08) M/mm3 Hgb (13.7-17.5) gm/dl Hct (40.1-51.0) % MCV (79.0-92.2) fl MCH (25.7-32.2) pg MCHC (32.2-35.5) g/dl RDW Std Deviation (35.1-43.9) fL Plt Count (163-337) K/mm3 MPV (9.4-12.3) fl Neut % (Auto) (34.0-67.9) % Lymph % (Auto) (21.8-53.1) % [place] % (Auto) (5.3-12.2) % Eos % (Auto) (0.8-7.0) Baso % (Auto) (0.1-1.2) % Neut # (Auto) (1.78-5.38) K/mm3 Lymph # (Auto) (1.32-3.57) K/mm3 [place] # (Auto) (0.30-0.82) K/mm3 Eos # (Auto) (0.04-0.54) K/mm3 Baso # (Auto) (0.01-0.08) K/mm3 PT (9.7-12.0) SECONDS INR APTT (21.7-31.4) SECONDS D-Dimer, Quantitative (0.19-0.50) mg/L Sodium 132 L (136-145) mEq/L Potassium 4.6 (3.5-5.1) mEq/L Chloride 96 L (98-107) mEq/L Carbon Dioxide 30 (21-32) mEq/L Anion Gap 10.6 (5-15) BUN 20 H (7-18) mg/dL Creatinine 1.0 (0.7-1.3) mg/dL Est Cr Clr Drug Dosing 99.36 mL/min Estimated GFR (MDRD) > 60 (>60) mL/min BUN/Creatinine Ratio 20.0 H (14-18) Glucose 159 H (70-99) mg/dL Calcium 8.5 (8.5-10.1) mg/dL Total Bilirubin 0.4 (0.2-1.0) mg/dL AST 31 (15-37) U/L ALT 54 (16-63) U/L Alkaline Phosphatase 55 (46-116) U/L C-Reactive Protein 17.3 H* (<1.0) mg/dL Total Protein 7.8 (6.4-8.2) g/dl Albumin 3.2 L (3.4-5.0) g/dl Globulin 4.6 gm/dL Albumin/Globulin Ratio 0.7 L (1-2) Result Diagrams: 06/05/21 08:55 06/05/21 08:55 Sepsis Event Note - Focused Exam Vital Signs: Vital Signs Temp Pulse Resp BP Pulse Ox 06/05/21 08:17 97.7 F 70 18 141/90 H 77 L - Problem List (1) Leukocytosis SNOMED Code(s): 834610236, 319264982 ICD Code: D72.829 - ELEVATED WHITE BLOOD CELL COUNT, UNSPECIFIED Status: Acute Priority: High Current Visit: Yes Qualifiers: Leukocytosis type: unspecified Qualified Code(s): D72.829 - Elevated white blood cell count, unspecified (2) Hypoxia SNOMED Code(s): 284342291 ICD Code: R09.02 - HYPOXEMIA Status: Acute Priority: High Current Visit: Yes (3) Elevated C-reactive protein (CRP) SNOMED Code(s): 872167282957450 ICD Code: R79.82 - ELEVATED C-REACTIVE PROTEIN (CRP) Status: Acute Priority: High Current Visit: Yes (4) Acute respiratory failure SNOMED Code(s): 42402958 ICD Code: J96.00 - ACUTE RESPIRATORY FAILURE, UNSP W HYPOXIA OR HYPERCAPNIA Status: Acute Priority: High Current Visit: Yes Qualifiers: Respiratory failure complication: hypoxia Qualified Code(s): J96.01 - Acute respiratory failure with hypoxia (5) Shortness of breath SNOMED Code(s): 558703254 ICD Code: R06.02 - SHORTNESS OF BREATH Status: Acute Priority: High Current Visit: Yes (6) Former smoker SNOMED Code(s): 9756807 ICD Code: Z87.891 - PERSONAL HISTORY OF NICOTINE DEPENDENCE Status: Chronic Priority: Low Current Visit: No (7) COVID-19 SNOMED Code(s): 276670110 ICD Code: U07.1 - COVID-19 Status: Acute Priority: High Current Visit: Yes Problem List Initiated/Reviewed/Updated: Yes Orders Last 24hrs: Active Orders 24 hr Category Date Time Status Admission Status [Patient Status] [ADT] Routine ADT 06/05/21 11:51 Active Cardiac Monitoring [RC] CONTINUOUS Care 06/05/21 12:12 Active Height and Weight [RC] DAILY Care 06/05/21 12:12 Active Intake and Output [RC] DAILY Care 06/05/21 12:12 Active Oxygen Therapy [RC] ASDIRECTED Care 06/05/21 12:12 Active Positioning, Patient [RC] ASDIRECTED Care 06/05/21 12:15 Active Pulse Oximetry [RC] CONTINUOUS Care 06/05/21 12:12 Active RT Aerosol Therapy [RC] ASDIRECTED Care 06/05/21 12:13 Active RT Chest Physiotherapy [RC] ASDIRECTED Care 06/05/21 12:12 Active RT Incentive Spirometry [RC] ASDIRECTED Care 06/05/21 12:12 Active Up ad Shanda [RC] ASDIRECTED Care 06/05/21 12:12 Active Vital Signs [RC] Q6H Care 06/05/21 12:12 Active Respiratory Care Assess and Treatment [CONS] Routine Cons 06/05/21 12:14 Active Regular Diet [DIET] Diet 06/05/21 Lunch Active BASIC METABOLIC PANEL,BMP [CHEM] Stat Lab 06/05/21 08:55 Results BLOOD CULTURE [MREF] Stat Lab 06/05/21 12:40 Received BLOOD CULTURE [MREF] Stat Lab 06/05/21 12:45 Received C-REACTIVE PROTEIN [CHEM] AM Lab 06/06/21 05:11 Ordered C-REACTIVE PROTEIN [CHEM] AM Lab 06/07/21 05:11 Ordered C-REACTIVE PROTEIN [CHEM] AM Lab 06/08/21 05:11 Ordered C-REACTIVE PROTEIN [CHEM] AM Lab 06/09/21 05:11 Ordered C-REACTIVE PROTEIN [CHEM] Stat Lab 06/05/21 08:55 Results CBC WITH AUTO DIFF [HEME] AM Lab 06/06/21 05:11 Ordered CBC WITH AUTO DIFF [HEME] AM Lab 06/07/21 05:11 Ordered CBC WITH AUTO DIFF [HEME] AM Lab 06/08/21 05:11 Ordered CBC WITH AUTO DIFF [HEME] AM Lab 06/09/21 05:11 Ordered COMPREHENSIVE METABOLIC PN,CMP [CHEM] AM Lab 06/06/21 05:11 Ordered COMPREHENSIVE METABOLIC PN,CMP [CHEM] AM Lab 06/07/21 05:11 Ordered COMPREHENSIVE METABOLIC PN,CMP [CHEM] AM Lab 06/08/21 05:11 Ordered COMPREHENSIVE METABOLIC PN,CMP [CHEM] AM Lab 06/09/21 05:11 Ordered D-DIMER QUANTITATIVE [COAG] Q48H Lab 06/07/21 05:11 Ordered D-DIMER QUANTITATIVE [COAG] Q48H Lab 06/09/21 05:11 Ordered D-DIMER QUANTITATIVE [COAG] Q48H Lab 06/11/21 05:11 Ordered FERRITIN [CHEM] Routine Lab 06/05/21 08:55 Received HEPATIC FUNCTION PANEL,HFP [CHEM] Stat Lab 06/05/21 08:55 Results LACTATE DEHYDROGENASE,LDH [CHEM] Stat Lab 06/05/21 08:55 Results LACTIC ACID [CHEM] Routine Lab 06/05/21 12:40 Received MAGNESIUM [CHEM] AM Lab 06/06/21 05:11 Ordered MAGNESIUM [CHEM] AM Lab 06/07/21 05:11 Ordered MAGNESIUM [CHEM] AM Lab 06/08/21 05:11 Ordered MAGNESIUM [CHEM] AM Lab 06/09/21 05:11 Ordered PROCALCITONIN [REF] Stat Lab 06/05/21 08:55 Received VITAMIN D,25-HYDROXY [CHEM] Routine Lab 06/05/21 12:40 Received Acetaminophen [TylenoL] Med 06/05/21 12:12 Active 650 mg PO Q4H PRN Albuterol [Proventil HFA] Med 06/05/21 12:12 Active See Dose Instructions INH Q2H PRN Albuterol/Ipratropium [DuoNeb 3.0-0.5 MG/3 ML] Med 06/05/21 12:12 Active 3 ml NEB QIDRT PRN Docusate Sodium [Colace] Med 06/05/21 12:12 Active 100 mg PO Q12H PRN Enoxaparin [Lovenox] Med 06/06/21 09:00 Active 40 mg SUBCUT DAILY Famotidine [Pepcid] Med 06/05/21 13:00 Active 20 mg PO BID Ondansetron [Zofran] Med 06/05/21 12:12 Active 4 mg IV Q6H PRN Remdesivir 100 mg Med 06/06/21 13:00 Active Sodium Chloride 0.9% [Normal Saline] 100 ml IV Q24H Remdesivir 200 mg Med 06/05/21 13:00 Active Sodium Chloride 0.9% [Normal Saline] 250 ml IV ONETIME Zinc Sulfate [Zincate] Med 06/05/21 13:00 Active 220 mg PO DAILY dexAMETHasone Med 06/05/21 13:00 Active 6 mg PO DAILY Blood Culture x2 Reflex Set [OM.PC] Stat Oth 06/05/21 12:16 Ordered Isolation [COMM] Stat Oth 06/05/21 08:43 Ordered Resuscitation Status Routine Resus Stat 06/05/21 12:12 Ordered Medication Orders Acetaminophen (Acetaminophen 325 Mg Tab) 650 mg PO Q4H PRN PRN Reason: Pain (Mild 1-3)/fever Albuterol (Albuterol 6.7 Gm Inhaler) 0 gm INH Q2H PRN PRN Reason: SOB/Wheezing Albuterol/Ipratropium (Albuterol/Ipratropium 3.0-0.5 Mg/3 Ml Neb Soln) 3 ml NEB QIDRT PRN PRN Reason: Shortness Of Breath/wheezing Dexamethasone (Dexamethasone 4 Mg Tab) 6 mg PO DAILY ARMIDA Stop: 06/14/21 09:01 Docusate Sodium (Docusate Sodium 100 Mg Cap) 100 mg PO Q12H PRN PRN Reason: Constipation Enoxaparin Sodium (Enoxaparin 40 Mg/0.4 Ml Syringe) 40 mg SUBCUT DAILY ARMIDA Famotidine (Famotidine 20 Mg Tab) 20 mg PO BID ARMIDA Remdesivir 200 mg/ Sodium (Chloride) 250 mls @ 250 mls/hr IV ONETIME ONE Stop: 06/05/21 13:59 Remdesivir 100 mg/ Sodium (Chloride) 100 mls @ 100 mls/hr IV Q24H ARMIDA Stop: 06/09/21 13:59 Ondansetron HCl (Ondansetron 4 Mg/2 Ml Sdv) 4 mg IV Q6H PRN PRN Reason: Nausea/Vomiting Zinc Sulfate (Zinc Sulfate 220 Mg Cap) 220 mg PO DAILY [facility] Assessment/Plan Comment:: Assessment - day of admission 06/05/2021 * 41-year-old male who presents to the ED with worsening COVID-19 pneumonia symptoms * Symptoms began on 05/27/21. * Had previously been seen in the ED on 06/02/21 at which time he was diagnosed with COVID-19. * At his ED visit on 06/02/21 he was started on dexamethasone 6mg daily, albuterol MDI, Tessalon Pearls, and Zofran. * Labs were obtained: * WBC of 11.45 * Elevated neutrophil level of 91.9% * Lymphocyte level low of 4.2%. * Hemoglobin 14.8. * D-dimer 0.29. * CRP elevated at 17.3. * Sodium 132. * Potassium 4.6. * Chloride 96. * BUN 20. Creatinine 1.0. GFR estimated to be >60. * AST 31. ALT 54. Alkaline phosphatase 55. * Albumin 2.7. * LDH 412. * Lactic acid 1.0. * Ferritin 2383. * Chest x-ray was obtained which revealed 1. Patchy areas of increased density on both sides of the chest is an interval change from prior exam. Findings are suspicious for possible COVID pneumonia. * Of note, the patient is a former smoker- quit in 2004. * He is subsequently admitted to the floor on telemetry and continuous pulse oximetry for further management of his COVID-19 pneumonia symptoms. PLAN: COVID-19 Leukocytosis Hypoxia Elevated C-reactive protein (CRP) Acute respiratory failure Shortness of breath * O2 as needed to keep oxygen saturation between 88-95% * RT consult * Telemetry * Dexamethasone- day 11/22 (patient on prior) * Remdesevir- day 09/19 * Zinc supplementation * Albuterol MDI PRN * Acapella/IS * DuoNeb as needed * He is ambulatory in room so we will hold off PT/OT for now * Twice daily scheduled Mucinex * Airborne/contact precautions * Continuous pulse oximetry * Prone whenever able * Ambulate around room * Daily labs * Famotidine 20 mg twice daily * Every 48 hour D-dimer * Check vitamin D level * Procalcitonin pending * Blood cultures pending * PRN Mark Mallory Former smoker * No acute concerns Code status: Full PCP: Was seeing Dr. Villafana. Needs to establish new PCP DVT prophylaxis: Lovneox Disposition: Admitted to medical floor for management of COVID-19 pneumonia symptoms with failed outpatient treatment. Likely length of stay 4 to 5 days pending improvement. - Mortality Measure Prognosis:: Good
[2021-06-05] MEDS: Zinc Sulfate 220 MG Cap PO SCH (14:34)
[2021-06-05] MEDS: Dexamethasone 4 MG Tab PO SCH (14:34)
[2021-06-05] MEDS: Famotidine 20 MG Tab PO SCH ×2 (14:34→20:29)
[2021-06-05] MEDS ORDERED: Benzonatate 100 MG Cap PO PRN (14:38)
[2021-06-05] MEDS: Albuterol 6.7 GM Inhaler INH PRN ×2 (15:01→20:33)
[2021-06-05] MEDS: guaiFENesin 600 MG Tab.ER PO SCH (20:28)
[2021-06-06] MEDS: Albuterol 6.7 GM Inhaler INH PRN ×4 (05:59→20:02)
[2021-06-06] MEDS: Enoxaparin 40 MG/0.4 ML Syringe SUBCUT SCH (08:21)
[2021-06-06] MEDS: Famotidine 20 MG Tab PO SCH ×2 (08:21→21:19)
[2021-06-06] MEDS: Zinc Sulfate 220 MG Cap PO SCH (08:22)
[2021-06-06] MEDS: guaiFENesin 600 MG Tab.ER PO SCH ×2 (08:22→21:19)
[2021-06-06] MEDS: Dexamethasone 4 MG Tab PO SCH (08:22)
--- NOTE | 2021-06-06 10:04 | PCM.PN ---
<Taisha Glasgow E - Last Filed: 06/06/21 11:00> - General Info Date of Service: 06/06/21 Functional Status: Reports: Pain Controlled, Tolerating Diet, Ambulating, Incentive Spirometry (Acapella) - Review of Systems General: Reports: Weakness, Fatigue. Denies: Fever, Chills, Night Sweats HEENT: Reports: No Symptoms. Denies: Headaches, Sore Throat, Rhinitis Pulmonary: Reports: Shortness of Breath, Pleuritic Chest Pain, Cough, Sputum. Denies: Wheezing Cardiovascular: Reports: Dyspnea on Exertion. Denies: Chest Pain, Palpitations, Edema, Lightheadedness Gastrointestinal: Reports: No Symptoms. Denies: Abdominal Pain, Constipation, Diarrhea, Nausea, Vomiting Genitourinary: Reports: No Symptoms. Denies: Dysuria, Frequency, Pain Musculoskeletal: Reports: No Symptoms Skin: Reports: No Symptoms. Denies: Cyanosis Neurological: Reports: No Symptoms. Denies: Confusion, Dizziness, Headache, Syncope Psychiatric: Reports: No Symptoms. Denies: Confusion, Depression - Patient Data Vitals - Most Recent: Last Vital Signs Temp 98.4 F 06/06/21 09:30 Pulse 60 06/06/21 09:30 Resp 20 06/06/21 09:30 BP 100/69 06/06/21 09:30 Pulse Ox 90 L 06/06/21 09:30 Weight - Most Recent: 210 lb 6.4 oz I&O - Last 24 Hours: Intake & Output 06/05/21 06/06/21 06/06/21 22:59 06:59 14:59 Intake Total 1040 1600 Output Total 0 Balance 1040 1600 Lab Results Last 24 Hours: Laboratory Results - last 24 hr 06/05/21 06/05/21 06/05/21 Range/Units 08:55 08:55 08:55 WBC (4.23-9.07) K/mm3 RBC (4.63-6.08) M/mm3 Hgb (13.7-17.5) gm/dl Hct (40.1-51.0) % MCV (79.0-92.2) fl MCH (25.7-32.2) pg MCHC (32.2-35.5) g/dl RDW Std Deviation (35.1-43.9) fL Plt Count (163-337) K/mm3 MPV (9.4-12.3) fl Neut % (Auto) (34.0-67.9) % Lymph % (Auto) (21.8-53.1) % [place] % (Auto) (5.3-12.2) % Eos % (Auto) (0.8-7.0) Baso % (Auto) (0.1-1.2) % Neut # (Auto) (1.78-5.38) K/mm3 Lymph # (Auto) (1.32-3.57) K/mm3 [place] # (Auto) (0.30-0.82) K/mm3 Eos # (Auto) (0.04-0.54) K/mm3 Baso # (Auto) (0.01-0.08) K/mm3 Manual Slide Review PT 10.9 (9.7-12.0) SECONDS INR 0.98 APTT 25.8 (21.7-31.4) SECONDS D-Dimer, Quantitative 0.29 (0.19-0.50) mg/L Sodium (136-145) mEq/L Potassium (3.5-5.1) mEq/L Chloride (98-107) mEq/L Carbon Dioxide (21-32) mEq/L Anion Gap (5-15) BUN (7-18) mg/dL Creatinine (0.7-1.3) mg/dL Est Cr Clr Drug Dosing mL/min Estimated GFR (MDRD) (>60) mL/min BUN/Creatinine Ratio (14-18) Glucose (70-99) mg/dL Lactic Acid (0.4-2.0) mmol/L Calcium (8.5-10.1) mg/dL Magnesium (1.8-2.4) mg/dL Ferritin 2383 H (26-388) ng/ml Total Bilirubin (0.2-1.0) mg/dL Direct Bilirubin (0.0-0.2) mg/dl Indirect Bilirubin AST (15-37) U/L ALT (16-63) U/L Alkaline Phosphatase (46-116) U/L Lactate Dehydrogenase (85-227) U/L C-Reactive Protein (<1.0) mg/dL Total Protein (6.4-8.2) g/dl Albumin (3.4-5.0) g/dl Globulin gm/dL Albumin/Globulin Ratio (1-2) Vitamin D 25-Hydroxy (30.0-100.0) ng/ml Procalcitonin ng/mL 06/05/21 06/05/21 06/05/21 Range/Units 08:55 08:55 12:40 WBC (4.23-9.07) K/mm3 RBC (4.63-6.08) M/mm3 Hgb (13.7-17.5) gm/dl Hct (40.1-51.0) % MCV (79.0-92.2) fl MCH (25.7-32.2) pg MCHC (32.2-35.5) g/dl RDW Std Deviation (35.1-43.9) fL Plt Count (163-337) K/mm3 MPV (9.4-12.3) fl Neut % (Auto) (34.0-67.9) % Lymph % (Auto) (21.8-53.1) % [place] % (Auto) (5.3-12.2) % Eos % (Auto) (0.8-7.0) Baso % (Auto) (0.1-1.2) % Neut # (Auto) (1.78-5.38) K/mm3 Lymph # (Auto) (1.32-3.57) K/mm3 [place] # (Auto) (0.30-0.82) K/mm3 Eos # (Auto) (0.04-0.54) K/mm3 Baso # (Auto) (0.01-0.08) K/mm3 Manual Slide Review PT (9.7-12.0) SECONDS INR APTT (21.7-31.4) SECONDS D-Dimer, Quantitative (0.19-0.50) mg/L Sodium (136-145) mEq/L Potassium (3.5-5.1) mEq/L Chloride (98-107) mEq/L Carbon Dioxide (21-32) mEq/L Anion Gap (5-15) BUN (7-18) mg/dL Creatinine (0.7-1.3) mg/dL Est Cr Clr Drug Dosing mL/min Estimated GFR (MDRD) (>60) mL/min BUN/Creatinine Ratio (14-18) Glucose (70-99) mg/dL Lactic Acid 1.0 (0.4-2.0) mmol/L Calcium (8.5-10.1) mg/dL Magnesium (1.8-2.4) mg/dL Ferritin (26-388) ng/ml Total Bilirubin (0.2-1.0) mg/dL Direct Bilirubin 0.10 (0.0-0.2) mg/dl Indirect Bilirubin 0.30 AST (15-37) U/L ALT (16-63) U/L Alkaline Phosphatase (46-116) U/L Lactate Dehydrogenase 412 H (85-227) U/L C-Reactive Protein (<1.0) mg/dL Total Protein (6.4-8.2) g/dl Albumin (3.4-5.0) g/dl Globulin gm/dL Albumin/Globulin Ratio (1-2) Vitamin D 25-Hydroxy (30.0-100.0) ng/ml Procalcitonin 0.53 H ng/mL 06/05/21 06/06/21 06/06/21 Range/Units 12:40 04:42 04:42 WBC 9.27 H (4.23-9.07) K/mm3 RBC 5.31 (4.63-6.08) M/mm3 Hgb 14.7 (13.7-17.5) gm/dl Hct 45.3 (40.1-51.0) % MCV 85.3 (79.0-92.2) fl MCH 27.7 (25.7-32.2) pg MCHC 32.5 (32.2-35.5) g/dl RDW Std Deviation 40.5 (35.1-43.9) fL Plt Count 199 (163-337) K/mm3 MPV 11.4 (9.4-12.3) fl Neut % (Auto) 87.9 H (34.0-67.9) % Lymph % (Auto) 6.0 L (21.8-53.1) % [place] % (Auto) 5.9 (5.3-12.2) % Eos % (Auto) 0 L (0.8-7.0) Baso % (Auto) 0.1 (0.1-1.2) % Neut # (Auto) 8.14 H (1.78-5.38) K/mm3 Lymph # (Auto) 0.56 L (1.32-3.57) K/mm3 [place] # (Auto) 0.55 (0.30-0.82) K/mm3 Eos # (Auto) 0.00 L (0.04-0.54) K/mm3 Baso # (Auto) 0.01 (0.01-0.08) K/mm3 Manual Slide Review Normal smear PT (9.7-12.0) SECONDS INR APTT (21.7-31.4) SECONDS D-Dimer, Quantitative (0.19-0.50) mg/L Sodium 135 L (136-145) mEq/L Potassium 4.7 (3.5-5.1) mEq/L Chloride 97 L (98-107) mEq/L Carbon Dioxide 30 (21-32) mEq/L Anion Gap 12.7 (5-15) BUN 22 H (7-18) mg/dL Creatinine 0.8 (0.7-1.3) mg/dL Est Cr Clr Drug Dosing 124.20 mL/min Estimated GFR (MDRD) > 60 (>60) mL/min BUN/Creatinine Ratio 27.5 H (14-18) Glucose 144 H (70-99) mg/dL Lactic Acid (0.4-2.0) mmol/L Calcium 8.6 (8.5-10.1) mg/dL Magnesium 2.7 H (1.8-2.4) mg/dL Ferritin (26-388) ng/ml Total Bilirubin 0.4 (0.2-1.0) mg/dL Direct Bilirubin (0.0-0.2) mg/dl Indirect Bilirubin AST 30 (15-37) U/L ALT 57 (16-63) U/L Alkaline Phosphatase 58 (46-116) U/L Lactate Dehydrogenase (85-227) U/L C-Reactive Protein 13.2 H* (<1.0) mg/dL Total Protein 7.7 (6.4-8.2) g/dl Albumin 2.9 L (3.4-5.0) g/dl Globulin 4.8 gm/dL Albumin/Globulin Ratio 0.6 L (1-2) Vitamin D 25-Hydroxy 49.4 (30.0-100.0) ng/ml Procalcitonin ng/mL Med Orders - Current: Current Medications Acetaminophen (Acetaminophen 325 Mg Tab) 650 mg PO Q4H PRN PRN Reason: Pain (Mild 1-3)/fever Albuterol (Albuterol 6.7 Gm Inhaler) 0 gm INH Q2H PRN PRN Reason: SOB/Wheezing Last Admin: 06/06/21 08:14 Dose: 2 puff Documented by: Albuterol/Ipratropium (Albuterol/Ipratropium 3.0-0.5 Mg/3 Ml Neb Soln) 3 ml NEB QIDRT PRN PRN Reason: Shortness Of Breath/wheezing Benzonatate (Benzonatate 100 Mg Cap) 100 mg PO TID PRN PRN Reason: Cough Last Admin: 06/05/21 20:29 Dose: 100 mg Documented by: Dexamethasone (Dexamethasone 4 Mg Tab) 6 mg PO DAILY [facility] Stop: 06/11/21 09:01 Last Admin: 06/06/21 08:22 Dose: 6 mg Documented by: Docusate Sodium (Docusate Sodium 100 Mg Cap) 100 mg PO Q12H PRN PRN Reason: Constipation Enoxaparin Sodium (Enoxaparin 40 Mg/0.4 Ml Syringe) 40 mg SUBCUT DAILY [facility] Last Admin: 06/06/21 08:21 Dose: 40 mg Documented by: Famotidine (Famotidine 20 Mg Tab) 20 mg PO BID [facility] Last Admin: 06/06/21 08:21 Dose: 20 mg Documented by: Guaifenesin (Guaifenesin 600 Mg Tab.Er) 600 mg PO BID [facility] Last Admin: 06/06/21 08:22 Dose: 600 mg Documented by: Remdesivir 100 mg/ Sodium (Chloride) 100 mls @ 100 mls/hr IV Q24H [facility] Stop: 06/09/21 13:59 Ondansetron HCl (Ondansetron 4 Mg/2 Ml Sdv) 4 mg IV Q6H PRN PRN Reason: Nausea/Vomiting Last Admin: 06/05/21 18:06 Dose: 4 mg Documented by: Zinc Sulfate (Zinc Sulfate 220 Mg Cap) 220 mg PO DAILY [facility] Last Admin: 06/06/21 08:22 Dose: 220 mg Documented by: Discontinued Medications Remdesivir 200 mg/ Sodium (Chloride) 250 mls @ 250 mls/hr IV ONETIME ONE Stop: 06/05/21 13:59 Last Admin: 06/05/21 14:35 Dose: 250 mls/hr Documented by: - Exam Quality Assessment: Supplemental Oxygen (2L), DVT Prophylaxis. No: Urine Catheter General: Alert, Oriented, No Acute Distress HEENT: Pupils Equal Neck: Supple, Trachea Midline Lungs: Normal Respiratory Effort, Decreased Breath Sounds, Crackles (fine) Cardiovascular: Regular Rate, Regular Rhythm GI/Abdominal Exam: Normal Bowel Sounds, Soft, Non-Tender, No Distention (Male) Exam: Deferred Back Exam: Normal Inspection, Full Range of Motion Extremities: Normal Inspection, Normal Range of Motion, Non-Tender, No Pedal Edema Peripheral Pulses: 2+: Radial (L), Radial (R), Dorsalis Pedis (L), Dorsalis Pedis (R) Skin: Warm, Dry, Intact Neurological: No New Focal Deficit Psy/Mental Status: Alert, Normal Affect, Normal Mood - Patient Data Lab Results Last 24 hrs: Laboratory Results - last 24 hr 06/05/21 06/05/21 06/05/21 Range/Units 08:55 08:55 08:55 WBC (4.23-9.07) K/mm3 RBC (4.63-6.08) M/mm3 Hgb (13.7-17.5) gm/dl Hct (40.1-51.0) % MCV (79.0-92.2) fl MCH (25.7-32.2) pg MCHC (32.2-35.5) g/dl RDW Std Deviation (35.1-43.9) fL Plt Count (163-337) K/mm3 MPV (9.4-12.3) fl Neut % (Auto) (34.0-67.9) % Lymph % (Auto) (21.8-53.1) % [place] % (Auto) (5.3-12.2) % Eos % (Auto) (0.8-7.0) Baso % (Auto) (0.1-1.2) % Neut # (Auto) (1.78-5.38) K/mm3 Lymph # (Auto) (1.32-3.57) K/mm3 [place] # (Auto) (0.30-0.82) K/mm3 Eos # (Auto) (0.04-0.54) K/mm3 Baso # (Auto) (0.01-0.08) K/mm3 Manual Slide Review PT 10.9 (9.7-12.0) SECONDS INR 0.98 APTT 25.8 (21.7-31.4) SECONDS D-Dimer, Quantitative 0.29 (0.19-0.50) mg/L Sodium (136-145) mEq/L Potassium (3.5-5.1) mEq/L Chloride (98-107) mEq/L Carbon Dioxide (21-32) mEq/L Anion Gap (5-15) BUN (7-18) mg/dL Creatinine (0.7-1.3) mg/dL Est Cr Clr Drug Dosing mL/min Estimated GFR (MDRD) (>60) mL/min BUN/Creatinine Ratio (14-18) Glucose (70-99) mg/dL Lactic Acid (0.4-2.0) mmol/L Calcium (8.5-10.1) mg/dL Magnesium (1.8-2.4) mg/dL Ferritin 2383 H (26-388) ng/ml Total Bilirubin (0.2-1.0) mg/dL Direct Bilirubin (0.0-0.2) mg/dl Indirect Bilirubin AST (15-37) U/L ALT (16-63) U/L Alkaline Phosphatase (46-116) U/L Lactate Dehydrogenase (85-227) U/L C-Reactive Protein (<1.0) mg/dL Total Protein (6.4-8.2) g/dl Albumin (3.4-5.0) g/dl Globulin gm/dL Albumin/Globulin Ratio (1-2) Vitamin D 25-Hydroxy (30.0-100.0) ng/ml Procalcitonin ng/mL 06/05/21 06/05/21 06/05/21 Range/Units 08:55 08:55 12:40 WBC (4.23-9.07) K/mm3 RBC (4.63-6.08) M/mm3 Hgb (13.7-17.5) gm/dl Hct (40.1-51.0) % MCV (79.0-92.2) fl MCH (25.7-32.2) pg MCHC (32.2-35.5) g/dl RDW Std Deviation (35.1-43.9) fL Plt Count (163-337) K/mm3 MPV (9.4-12.3) fl Neut % (Auto) (34.0-67.9) % Lymph % (Auto) (21.8-53.1) % [place] % (Auto) (5.3-12.2) % Eos % (Auto) (0.8-7.0) Baso % (Auto) (0.1-1.2) % Neut # (Auto) (1.78-5.38) K/mm3 Lymph # (Auto) (1.32-3.57) K/mm3 [place] # (Auto) (0.30-0.82) K/mm3 Eos # (Auto) (0.04-0.54) K/mm3 Baso # (Auto) (0.01-0.08) K/mm3 Manual Slide Review PT (9.7-12.0) SECONDS INR APTT (21.7-31.4) SECONDS D-Dimer, Quantitative (0.19-0.50) mg/L Sodium (136-145) mEq/L Potassium (3.5-5.1) mEq/L Chloride (98-107) mEq/L Carbon Dioxide (21-32) mEq/L Anion Gap (5-15) BUN (7-18) mg/dL Creatinine (0.7-1.3) mg/dL Est Cr Clr Drug Dosing mL/min Estimated GFR (MDRD) (>60) mL/min BUN/Creatinine Ratio (14-18) Glucose (70-99) mg/dL Lactic Acid 1.0 (0.4-2.0) mmol/L Calcium (8.5-10.1) mg/dL Magnesium (1.8-2.4) mg/dL Ferritin (26-388) ng/ml Total Bilirubin (0.2-1.0) mg/dL Direct Bilirubin 0.10 (0.0-0.2) mg/dl Indirect Bilirubin 0.30 AST (15-37) U/L ALT (16-63) U/L Alkaline Phosphatase (46-116) U/L Lactate Dehydrogenase 412 H (85-227) U/L C-Reactive Protein (<1.0) mg/dL Total Protein (6.4-8.2) g/dl Albumin (3.4-5.0) g/dl Globulin gm/dL Albumin/Globulin Ratio (1-2) Vitamin D 25-Hydroxy (30.0-100.0) ng/ml Procalcitonin 0.53 H ng/mL 06/05/21 06/06/21 06/06/21 Range/Units 12:40 04:42 04:42 WBC 9.27 H (4.23-9.07) K/mm3 RBC 5.31 (4.63-6.08) M/mm3 Hgb 14.7 (13.7-17.5) gm/dl Hct 45.3 (40.1-51.0) % MCV 85.3 (79.0-92.2) fl MCH 27.7 (25.7-32.2) pg MCHC 32.5 (32.2-35.5) g/dl RDW Std Deviation 40.5 (35.1-43.9) fL Plt Count 199 (163-337) K/mm3 MPV 11.4 (9.4-12.3) fl Neut % (Auto) 87.9 H (34.0-67.9) % Lymph % (Auto) 6.0 L (21.8-53.1) % [place] % (Auto) 5.9 (5.3-12.2) % Eos % (Auto) 0 L (0.8-7.0) Baso % (Auto) 0.1 (0.1-1.2) % Neut # (Auto) 8.14 H (1.78-5.38) K/mm3 Lymph # (Auto) 0.56 L (1.32-3.57) K/mm3 [place] # (Auto) 0.55 (0.30-0.82) K/mm3 Eos # (Auto) 0.00 L (0.04-0.54) K/mm3 Baso # (Auto) 0.01 (0.01-0.08) K/mm3 Manual Slide Review Normal smear PT (9.7-12.0) SECONDS INR APTT (21.7-31.4) SECONDS D-Dimer, Quantitative (0.19-0.50) mg/L Sodium 135 L (136-145) mEq/L Potassium 4.7 (3.5-5.1) mEq/L Chloride 97 L (98-107) mEq/L Carbon Dioxide 30 (21-32) mEq/L Anion Gap 12.7 (5-15) BUN 22 H (7-18) mg/dL Creatinine 0.8 (0.7-1.3) mg/dL Est Cr Clr Drug Dosing 124.20 mL/min Estimated GFR (MDRD) > 60 (>60) mL/min BUN/Creatinine Ratio 27.5 H (14-18) Glucose 144 H (70-99) mg/dL Lactic Acid (0.4-2.0) mmol/L Calcium 8.6 (8.5-10.1) mg/dL Magnesium 2.7 H (1.8-2.4) mg/dL Ferritin (26-388) ng/ml Total Bilirubin 0.4 (0.2-1.0) mg/dL Direct Bilirubin (0.0-0.2) mg/dl Indirect Bilirubin AST 30 (15-37) U/L ALT 57 (16-63) U/L Alkaline Phosphatase 58 (46-116) U/L Lactate Dehydrogenase (85-227) U/L C-Reactive Protein 13.2 H* (<1.0) mg/dL Total Protein 7.7 (6.4-8.2) g/dl Albumin 2.9 L (3.4-5.0) g/dl Globulin 4.8 gm/dL Albumin/Globulin Ratio 0.6 L (1-2) Vitamin D 25-Hydroxy 49.4 (30.0-100.0) ng/ml Procalcitonin ng/mL Result Diagrams: 06/06/21 04:42 06/06/21 04:42 Sepsis Event Note - Evaluation Sepsis Screening Result: No Definite Risk - Focused Exam Vital Signs: Vital Signs Temp Pulse Resp BP Pulse Ox Pulse Ox 06/06/21 09:30 98.4 F 60 20 100/69 90 L 06/06/21 08:15 90 L 06/06/21 05:59 94 L 06/06/21 05:53 97.5 F 65 16 120/82 92 L - Problem List & Annotations (1) Acute respiratory failure SNOMED Code(s): 72367890 Code(s): J96.00 - ACUTE RESPIRATORY FAILURE, UNSP W HYPOXIA OR HYPERCAPNIA Status: Acute Priority: High Current Visit: Yes Qualifiers: Respiratory failure complication: hypoxia Qualified Code(s): J96.01 - Acute respiratory failure with hypoxia (2) COVID-19 SNOMED Code(s): 394127205 Code(s): U07.1 - COVID-19 Status: Acute Priority: High Current Visit: Yes (3) Elevated C-reactive protein (CRP) SNOMED Code(s): 763799910114632 Code(s): R79.82 - ELEVATED C-REACTIVE PROTEIN (CRP) Status: Acute Priority: High Current Visit: Yes (4) Hypoxia SNOMED Code(s): 031463865 Code(s): R09.02 - HYPOXEMIA Status: Acute Priority: High Current Visit: Yes (5) Leukocytosis SNOMED Code(s): 564409790, 267684474 Code(s): D72.829 - ELEVATED WHITE BLOOD CELL COUNT, UNSPECIFIED Status: Acute Priority: High Current Visit: Yes Qualifiers: Leukocytosis type: unspecified Qualified Code(s): D72.829 - Elevated white blood cell count, unspecified (6) Shortness of breath SNOMED Code(s): 725735316 Code(s): R06.02 - SHORTNESS OF BREATH Status: Acute Priority: High Current Visit: Yes (7) Former smoker SNOMED Code(s): 8206284 Code(s): Z87.891 - PERSONAL HISTORY OF NICOTINE DEPENDENCE Status: Chronic Priority: Low Current Visit: No - Problem List Review Problem List Initiated/Reviewed/Updated: Yes - Assessment Assessment:: Assessment - day of admission 06/05/2021 * 41-year-old male who presents to the ED with worsening COVID-19 pneumonia symptoms * Symptoms began on 05/27/21. * Had previously been seen in the ED on 06/02/21 at which time he was diagnosed with COVID-19. * At his ED visit on 06/02/21 he was started on dexamethasone 6mg daily, albuterol MDI, Tessalon Pearls, and Zofran. * Labs were obtained: * WBC of 11.45 * Elevated neutrophil level of 91.9% * Lymphocyte level low of 4.2%. * Hemoglobin 14.8. * D-dimer 0.29. * CRP elevated at 17.3. * Sodium 132. * Potassium 4.6. * Chloride 96. * BUN 20. Creatinine 1.0. GFR estimated to be >60. * AST 31. ALT 54. Alkaline phosphatase 55. * Albumin 2.7. * LDH 412. * Lactic acid 1.0. * Ferritin 2383. * Chest x-ray was obtained which revealed 1. Patchy areas of increased density on both sides of the chest is an interval change from prior exam. Findings are suspicious for possible COVID pneumonia. * Of note, the patient is a former smoker- quit in 2004. * He is subsequently admitted to the floor on telemetry and continuous pulse oximetry for further management of his COVID-19 pneumonia symptoms. 06/06/2021 This is a 41-year-old male admitted to the floor on 06/05/2021 for management of his COVID-19 pneumonia symptoms. He has been doing fairly well with oxygen saturations between 90-94% on 2L oxygen via nasal cannula. He has been trying to ambulate within his room and experiences significant fatigue and shortness of breath with this. He reports having a good appetite. He denies any nausea/v omiting, constipation, or diarrhea. He has been utilizing his I/S and Acapella daily. He has not been able to prone due to shortness of breath but plans to incorporate this as tolerated. Labs today were obtained: WBC 9.27. Neutrophils 87.9%. Lymphocytes 6.0%. Sodium 135. Potassium 4.7. Chloride 97. Carbon dioxide 30. Anion gap 12.7. BUN 22. Creatinine 0.8. GFR >60. Calcium 8.6. Magnesium 2.7. AST 30. ALT 57. Alkaline phosphatase 58. CRP 13.2. Albumin 2.9. Procalcitonin slightly elevated at 0.53. Vitamin D 49.4. Patient will remain hospitalized until he finishes his treatment regime or weans off of oxygen supplementation. - Plan Plan:: COVID-19 Leukocytosis Hypoxia Elevated C-reactive protein (CRP) Acute respiratory failure Shortness of breath * O2 as needed to keep oxygen saturation between 88-95% * RT consult * Telemetry * Dexamethasone- day 12/23 (patient on prior) * Remdesevir- day 2/ * Zinc supplementation * Albuterol MDI PRN * Acapella/IS * DuoNeb as needed * He is ambulatory in room so we will hold off PT/OT for now * Twice daily scheduled Mucinex * Airborne/contact precautions * Continuous pulse oximetry * Prone whenever able * Ambulate around room * Daily labs * Famotidine 20 mg twice daily * Every 48 hour D-dimer * Blood cultures pending * JOAQUIMN Mark Mallory Former smoker * No acute concerns Code status: Full PCP: Was seeing Dr. Villafana. Needs to establish new PCP DVT prophylaxis: Lovneox Disposition: Admitted to medical floor for management of COVID-19 pneumonia symptoms with failed outpatient treatment. Likely length of stay 3 to 4 days pending improvement. <Vicente Ramires - Last Filed: 06/06/21 12:11> - Patient Data Vitals - Most Recent: Last Vital Signs Temp 98.4 F 06/06/21 09:30 Pulse 60 06/06/21 09:30 Resp 20 06/06/21 09:30 BP 100/69 06/06/21 09:30 Pulse Ox 90 L 06/06/21 09:30 I&O - Last 24 Hours: Intake & Output 06/05/21 06/06/21 06/06/21 22:59 06:59 14:59 Intake Total 1040 1600 Output Total 0 Balance 1040 1600 Lab Results Last 24 Hours: Laboratory Results - last 24 hr 06/05/21 06/05/21 06/05/21 Range/Units 08:55 08:55 08:55 WBC (4.23-9.07) K/mm3 RBC (4.63-6.08) M/mm3 Hgb (13.7-17.5) gm/dl Hct (40.1-51.0) % MCV (79.0-92.2) fl MCH (25.7-32.2) pg MCHC (32.2-35.5) g/dl RDW Std Deviation (35.1-43.9) fL Plt Count (163-337) K/mm3 MPV (9.4-12.3) fl Neut % (Auto) (34.0-67.9) % Lymph % (Auto) (21.8-53.1) % [place] % (Auto) (5.3-12.2) % Eos % (Auto) (0.8-7.0) Baso % (Auto) (0.1-1.2) % Neut # (Auto) (1.78-5.38) K/mm3 Lymph # (Auto) (1.32-3.57) K/mm3 [place] # (Auto) (0.30-0.82) K/mm3 Eos # (Auto) (0.04-0.54) K/mm3 Baso # (Auto) (0.01-0.08) K/mm3 Manual Slide Review Sodium (136-145) mEq/L Potassium (3.5-5.1) mEq/L Chloride (98-107) mEq/L Carbon Dioxide (21-32) mEq/L Anion Gap (5-15) BUN (7-18) mg/dL Creatinine (0.7-1.3) mg/dL Est Cr Clr Drug Dosing mL/min Estimated GFR (MDRD) (>60) mL/min BUN/Creatinine Ratio (14-18) Glucose (70-99) mg/dL Lactic Acid (0.4-2.0) mmol/L Calcium (8.5-10.1) mg/dL Magnesium (1.8-2.4) mg/dL Ferritin 2383 H (26-388) ng/ml Total Bilirubin (0.2-1.0) mg/dL Direct Bilirubin 0.10 (0.0-0.2) mg/dl Indirect Bilirubin 0.30 AST (15-37) U/L ALT (16-63) U/L Alkaline Phosphatase (46-116) U/L Lactate Dehydrogenase 412 H (85-227) U/L C-Reactive Protein (<1.0) mg/dL Total Protein (6.4-8.2) g/dl Albumin (3.4-5.0) g/dl Globulin gm/dL Albumin/Globulin Ratio (1-2) Vitamin D 25-Hydroxy (30.0-100.0) ng/ml Procalcitonin 0.53 H ng/mL 06/05/21 06/05/21 06/06/21 Range/Units 12:40 12:40 04:42 WBC 9.27 H (4.23-9.07) K/mm3 RBC 5.31 (4.63-6.08) M/mm3 Hgb 14.7 (13.7-17.5) gm/dl Hct 45.3 (40.1-51.0) % MCV 85.3 (79.0-92.2) fl MCH 27.7 (25.7-32.2) pg MCHC 32.5 (32.2-35.5) g/dl RDW Std Deviation 40.5 (35.1-43.9) fL Plt Count 199 (163-337) K/mm3 MPV 11.4 (9.4-12.3) fl Neut % (Auto) 87.9 H (34.0-67.9) % Lymph % (Auto) 6.0 L (21.8-53.1) % [place] % (Auto) 5.9 (5.3-12.2) % Eos % (Auto) 0 L (0.8-7.0) Baso % (Auto) 0.1 (0.1-1.2) % Neut # (Auto) 8.14 H (1.78-5.38) K/mm3 Lymph # (Auto) 0.56 L (1.32-3.57) K/mm3 [place] # (Auto) 0.55 (0.30-0.82) K/mm3 Eos # (Auto) 0.00 L (0.04-0.54) K/mm3 Baso # (Auto) 0.01 (0.01-0.08) K/mm3 Manual Slide Review Normal smear Sodium (136-145) mEq/L Potassium (3.5-5.1) mEq/L Chloride (98-107) mEq/L Carbon Dioxide (21-32) mEq/L Anion Gap (5-15) BUN (7-18) mg/dL Creatinine (0.7-1.3) mg/dL Est Cr Clr Drug Dosing mL/min Estimated GFR (MDRD) (>60) mL/min BUN/Creatinine Ratio (14-18) Glucose (70-99) mg/dL Lactic Acid 1.0 (0.4-2.0) mmol/L Calcium (8.5-10.1) mg/dL Magnesium (1.8-2.4) mg/dL Ferritin (26-388) ng/ml Total Bilirubin (0.2-1.0) mg/dL Direct Bilirubin (0.0-0.2) mg/dl Indirect Bilirubin AST (15-37) U/L ALT (16-63) U/L Alkaline Phosphatase (46-116) U/L Lactate Dehydrogenase (85-227) U/L C-Reactive Protein (<1.0) mg/dL Total Protein (6.4-8.2) g/dl Albumin (3.4-5.0) g/dl Globulin gm/dL Albumin/Globulin Ratio (1-2) Vitamin D 25-Hydroxy 49.4 (30.0-100.0) ng/ml Procalcitonin ng/mL 06/06/21 Range/Units 04:42 WBC (4.23-9.07) K/mm3 RBC (4.63-6.08) M/mm3 Hgb (13.7-17.5) gm/dl Hct (40.1-51.0) % MCV (79.0-92.2) fl MCH (25.7-32.2) pg MCHC (32.2-35.5) g/dl RDW Std Deviation (35.1-43.9) fL Plt Count (163-337) K/mm3 MPV (9.4-12.3) fl Neut % (Auto) (34.0-67.9) % Lymph % (Auto) (21.8-53.1) % [place] % (Auto) (5.3-12.2) % Eos % (Auto) (0.8-7.0) Baso % (Auto) (0.1-1.2) % Neut # (Auto) (1.78-5.38) K/mm3 Lymph # (Auto) (1.32-3.57) K/mm3 [place] # (Auto) (0.30-0.82) K/mm3 Eos # (Auto) (0.04-0.54) K/mm3 Baso # (Auto) (0.01-0.08) K/mm3 Manual Slide Review Sodium 135 L (136-145) mEq/L Potassium 4.7 (3.5-5.1) mEq/L Chloride 97 L (98-107) mEq/L Carbon Dioxide 30 (21-32) mEq/L Anion Gap 12.7 (5-15) BUN 22 H (7-18) mg/dL Creatinine 0.8 (0.7-1.3) mg/dL Est Cr Clr Drug Dosing 124.20 mL/min Estimated GFR (MDRD) > 60 (>60) mL/min BUN/Creatinine Ratio 27.5 H (14-18) Glucose 144 H (70-99) mg/dL Lactic Acid (0.4-2.0) mmol/L Calcium 8.6 (8.5-10.1) mg/dL Magnesium 2.7 H (1.8-2.4) mg/dL Ferritin (26-388) ng/ml Total Bilirubin 0.4 (0.2-1.0) mg/dL Direct Bilirubin (0.0-0.2) mg/dl Indirect Bilirubin AST 30 (15-37) U/L ALT 57 (16-63) U/L Alkaline Phosphatase 58 (46-116) U/L Lactate Dehydrogenase (85-227) U/L C-Reactive Protein 13.2 H* (<1.0) mg/dL Total Protein 7.7 (6.4-8.2) g/dl Albumin 2.9 L (3.4-5.0) g/dl Globulin 4.8 gm/dL Albumin/Globulin Ratio 0.6 L (1-2) Vitamin D 25-Hydroxy (30.0-100.0) ng/ml Procalcitonin ng/mL Med Orders - Current: Current Medications Acetaminophen (Acetaminophen 325 Mg Tab) 650 mg PO Q4H PRN PRN Reason: Pain (Mild 1-3)/fever Albuterol (Albuterol 6.7 Gm Inhaler) 0 gm INH Q2H PRN PRN Reason: SOB/Wheezing Last Admin: 06/06/21 08:14 Dose: 2 puff Documented by: Albuterol/Ipratropium (Albuterol/Ipratropium 3.0-0.5 Mg/3 Ml Neb Soln) 3 ml NEB QIDRT PRN PRN Reason: Shortness Of Breath/wheezing Benzonatate (Benzonatate 100 Mg Cap) 100 mg PO TID PRN PRN Reason: Cough Last Admin: 06/05/21 20:29 Dose: 100 mg Documented by: Dexamethasone (Dexamethasone 4 Mg Tab) 6 mg PO DAILY [facility] Stop: 06/11/21 09:01 Last Admin: 06/06/21 08:22 Dose: 6 mg Documented by: Docusate Sodium (Docusate Sodium 100 Mg Cap) 100 mg PO Q12H PRN PRN Reason: Constipation Enoxaparin Sodium (Enoxaparin 40 Mg/0.4 Ml Syringe) 40 mg SUBCUT DAILY [facility] Last Admin: 06/06/21 08:21 Dose: 40 mg Documented by: Famotidine (Famotidine 20 Mg Tab) 20 mg PO BID [facility] Last Admin: 06/06/21 08:21 Dose: 20 mg Documented by: Guaifenesin (Guaifenesin 600 Mg Tab.Er) 600 mg PO BID [facility] Last Admin: 06/06/21 08:22 Dose: 600 mg Documented by: Remdesivir 100 mg/ Sodium (Chloride) 100 mls @ 100 mls/hr IV Q24H [facility] Stop: 06/09/21 13:59 Ondansetron HCl (Ondansetron 4 Mg/2 Ml Sdv) 4 mg IV Q6H PRN PRN Reason: Nausea/Vomiting Last Admin: 06/05/21 18:06 Dose: 4 mg Documented by: Zinc Sulfate (Zinc Sulfate 220 Mg Cap) 220 mg PO DAILY [facility] Last Admin: 06/06/21 08:22 Dose: 220 mg Documented by: Discontinued Medications Remdesivir 200 mg/ Sodium (Chloride) 250 mls @ 250 mls/hr IV ONETIME ONE Stop: 06/05/21 13:59 Last Admin: 06/05/21 14:35 Dose: 250 mls/hr Documented by: - Patient Data Lab Results Last 24 hrs: Laboratory Results - last 24 hr 06/05/21 06/05/21 06/05/21 Range/Units 08:55 08:55 08:55 WBC (4.23-9.07) K/mm3 RBC (4.63-6.08) M/mm3 Hgb (13.7-17.5) gm/dl Hct (40.1-51.0) % MCV (79.0-92.2) fl MCH (25.7-32.2) pg MCHC (32.2-35.5) g/dl RDW Std Deviation (35.1-43.9) fL Plt Count (163-337) K/mm3 MPV (9.4-12.3) fl Neut % (Auto) (34.0-67.9) % Lymph % (Auto) (21.8-53.1) % [place] % (Auto) (5.3-12.2) % Eos % (Auto) (0.8-7.0) Baso % (Auto) (0.1-1.2) % Neut # (Auto) (1.78-5.38) K/mm3 Lymph # (Auto) (1.32-3.57) K/mm3 [place] # (Auto) (0.30-0.82) K/mm3 Eos # (Auto) (0.04-0.54) K/mm3 Baso # (Auto) (0.01-0.08) K/mm3 Manual Slide Review Sodium (136-145) mEq/L Potassium (3.5-5.1) mEq/L Chloride (98-107) mEq/L Carbon Dioxide (21-32) mEq/L Anion Gap (5-15) BUN (7-18) mg/dL Creatinine (0.7-1.3) mg/dL Est Cr Clr Drug Dosing mL/min Estimated GFR (MDRD) (>60) mL/min BUN/Creatinine Ratio (14-18) Glucose (70-99) mg/dL Lactic Acid (0.4-2.0) mmol/L Calcium (8.5-10.1) mg/dL Magnesium (1.8-2.4) mg/dL Ferritin 2383 H (26-388) ng/ml Total Bilirubin (0.2-1.0) mg/dL Direct Bilirubin 0.10 (0.0-0.2) mg/dl Indirect Bilirubin 0.30 AST (15-37) U/L ALT (16-63) U/L Alkaline Phosphatase (46-116) U/L Lactate Dehydrogenase 412 H (85-227) U/L C-Reactive Protein (<1.0) mg/dL Total Protein (6.4-8.2) g/dl Albumin (3.4-5.0) g/dl Globulin gm/dL Albumin/Globulin Ratio (1-2) Vitamin D 25-Hydroxy (30.0-100.0) ng/ml Procalcitonin 0.53 H ng/mL 06/05/21 06/05/21 06/06/21 Range/Units 12:40 12:40 04:42 WBC 9.27 H (4.23-9.07) K/mm3 RBC 5.31 (4.63-6.08) M/mm3 Hgb 14.7 (13.7-17.5) gm/dl Hct 45.3 (40.1-51.0) % MCV 85.3 (79.0-92.2) fl MCH 27.7 (25.7-32.2) pg MCHC 32.5 (32.2-35.5) g/dl RDW Std Deviation 40.5 (35.1-43.9) fL Plt Count 199 (163-337) K/mm3 MPV 11.4 (9.4-12.3) fl Neut % (Auto) 87.9 H (34.0-67.9) % Lymph % (Auto) 6.0 L (21.8-53.1) % [place] % (Auto) 5.9 (5.3-12.2) % Eos % (Auto) 0 L (0.8-7.0) Baso % (Auto) 0.1 (0.1-1.2) % Neut # (Auto) 8.14 H (1.78-5.38) K/mm3 Lymph # (Auto) 0.56 L (1.32-3.57) K/mm3 [place] # (Auto) 0.55 (0.30-0.82) K/mm3 Eos # (Auto) 0.00 L (0.04-0.54) K/mm3 Baso # (Auto) 0.01 (0.01-0.08) K/mm3 Manual Slide Review Normal smear Sodium (136-145) mEq/L Potassium (3.5-5.1) mEq/L Chloride (98-107) mEq/L Carbon Dioxide (21-32) mEq/L Anion Gap (5-15) BUN (7-18) mg/dL Creatinine (0.7-1.3) mg/dL Est Cr Clr Drug Dosing mL/min Estimated GFR (MDRD) (>60) mL/min BUN/Creatinine Ratio (14-18) Glucose (70-99) mg/dL Lactic Acid 1.0 (0.4-2.0) mmol/L Calcium (8.5-10.1) mg/dL Magnesium (1.8-2.4) mg/dL Ferritin (26-388) ng/ml Total Bilirubin (0.2-1.0) mg/dL Direct Bilirubin (0.0-0.2) mg/dl Indirect Bilirubin AST (15-37) U/L ALT (16-63) U/L Alkaline Phosphatase (46-116) U/L Lactate Dehydrogenase (85-227) U/L C-Reactive Protein (<1.0) mg/dL Total Protein (6.4-8.2) g/dl Albumin (3.4-5.0) g/dl Globulin gm/dL Albumin/Globulin Ratio (1-2) Vitamin D 25-Hydroxy 49.4 (30.0-100.0) ng/ml Procalcitonin ng/mL 06/06/21 Range/Units 04:42 WBC (4.23-9.07) K/mm3 RBC (4.63-6.08) M/mm3 Hgb (13.7-17.5) gm/dl Hct (40.1-51.0) % MCV (79.0-92.2) fl MCH (25.7-32.2) pg MCHC (32.2-35.5) g/dl RDW Std Deviation (35.1-43.9) fL Plt Count (163-337) K/mm3 MPV (9.4-12.3) fl Neut % (Auto) (34.0-67.9) % Lymph % (Auto) (21.8-53.1) % [place] % (Auto) (5.3-12.2) % Eos % (Auto) (0.8-7.0) Baso % (Auto) (0.1-1.2) % Neut # (Auto) (1.78-5.38) K/mm3 Lymph # (Auto) (1.32-3.57) K/mm3 [place] # (Auto) (0.30-0.82) K/mm3 Eos # (Auto) (0.04-0.54) K/mm3 Baso # (Auto) (0.01-0.08) K/mm3 Manual Slide Review Sodium 135 L (136-145) mEq/L Potassium 4.7 (3.5-5.1) mEq/L Chloride 97 L (98-107) mEq/L Carbon Dioxide 30 (21-32) mEq/L Anion Gap 12.7 (5-15) BUN 22 H (7-18) mg/dL Creatinine 0.8 (0.7-1.3) mg/dL Est Cr Clr Drug Dosing 124.20 mL/min Estimated GFR (MDRD) > 60 (>60) mL/min BUN/Creatinine Ratio 27.5 H (14-18) Glucose 144 H (70-99) mg/dL Lactic Acid (0.4-2.0) mmol/L Calcium 8.6 (8.5-10.1) mg/dL Magnesium 2.7 H (1.8-2.4) mg/dL Ferritin (26-388) ng/ml Total Bilirubin 0.4 (0.2-1.0) mg/dL Direct Bilirubin (0.0-0.2) mg/dl Indirect Bilirubin AST 30 (15-37) U/L ALT 57 (16-63) U/L Alkaline Phosphatase 58 (46-116) U/L Lactate Dehydrogenase (85-227) U/L C-Reactive Protein 13.2 H* (<1.0) mg/dL Total Protein 7.7 (6.4-8.2) g/dl Albumin 2.9 L (3.4-5.0) g/dl Globulin 4.8 gm/dL Albumin/Globulin Ratio 0.6 L (1-2) Vitamin D 25-Hydroxy (30.0-100.0) ng/ml Procalcitonin ng/mL Result Diagrams: 06/06/21 04:42 06/06/21 04:42 Sepsis Event Note - Focused Exam Vital Signs: Vital Signs Temp Pulse Resp BP Pulse Ox Pulse Ox 06/06/21 09:30 98.4 F 60 20 100/69 90 L 06/06/21 08:15 90 L 06/06/21 05:59 94 L 06/06/21 05:53 97.5 F 65 16 120/82 92 L - Problem List & Annotations (1) Leukocytosis SNOMED Code(s): 877577695, 960177327 Code(s): D72.829 - ELEVATED WHITE BLOOD CELL COUNT, UNSPECIFIED Status: Acute Priority: High Current Visit: Yes Qualifiers: Leukocytosis type: unspecified Qualified Code(s): D72.829 - Elevated white blood cell count, unspecified (2) Hypoxia SNOMED Code(s): 923674465 Code(s): R09.02 - HYPOXEMIA Status: Acute Priority: High Current Visit: Yes (3) Elevated C-reactive protein (CRP) SNOMED Code(s): 878946065854056 Code(s): R79.82 - ELEVATED C-REACTIVE PROTEIN (CRP) Status: Acute Priority: High Current Visit: Yes (4) Acute respiratory failure SNOMED Code(s): 09627010 Code(s): J96.00 - ACUTE RESPIRATORY FAILURE, UNSP W HYPOXIA OR HYPERCAPNIA Status: Acute Priority: High Current Visit: Yes Qualifiers: Respiratory failure complication: hypoxia Qualified Code(s): J96.01 - Acute respiratory failure with hypoxia (5) Shortness of breath SNOMED Code(s): 494571224 Code(s): R06.02 - SHORTNESS OF BREATH Status: Acute Priority: High Current Visit: Yes (6) Former smoker SNOMED Code(s): 5584857 Code(s): Z87.891 - PERSONAL HISTORY OF NICOTINE DEPENDENCE Status: Chronic Priority: Low Current Visit: No (7) COVID-19 SNOMED Code(s): 732387205 Code(s): U07.1 - COVID-19 Status: Acute Priority: High Current Visit: Yes - Problem List Review Problem List Initiated/Reviewed/Updated: Yes - My Orders Last 24 Hours: My Active Orders 06/05/21 12:12 Height and Weight [RC] 06 Intake and Output [RC] 04,16 Oxygen Therapy [RC] ASDIRECTED Pulse Oximetry [RC] CONTINUOUS RT Chest Physiotherapy [RC] ASDIRECTED RT Incentive Spirometry [RC] ASDIRECTED Up ad Shanda [RC] QSHIFT Vital Signs [RC] 0400,1000,1600,2200 Acetaminophen [TylenoL] 650 mg PO Q4H PRN Albuterol [Proventil HFA] See Dose Instructions INH Q2H PRN Albuterol/Ipratropium [DuoNeb 3.0-0.5 MG/3 ML] 3 ml NEB QIDRT PRN Docusate Sodium [Colace] 100 mg PO Q12H PRN Ondansetron [Zofran] 4 mg IV Q6H PRN Resuscitation Status Routine 06/05/21 12:13 RT Aerosol Therapy [RC] ASDIRECTED 06/05/21 12:14 Respiratory Care Assess and Treatment [CONS] Routine 06/05/21 12:15 Positioning, Patient [RC] QSHIFT 06/05/21 12:16 Blood Culture x2 Reflex Set [OM.PC] Stat 06/05/21 12:40 BLOOD CULTURE [MREF] Stat 06/05/21 12:45 BLOOD CULTURE [MREF] Stat 06/05/21 14:30 Famotidine [Pepcid] 20 mg PO BID Zinc Sulfate [Zincate] 220 mg PO DAILY dexAMETHasone 6 mg PO DAILY 06/05/21 14:38 Benzonatate [Tessalon Perles] 100 mg PO TID PRN 06/05/21 21:00 guaiFENesin [Mucinex] 600 mg PO BID 06/06/21 09:00 Enoxaparin [Lovenox] 40 mg SUBCUT DAILY 06/06/21 13:00 Remdesivir 100 mg Sodium Chloride 0.9% [Normal Saline] 100 ml IV Q24H 06/07/21 05:11 C-REACTIVE PROTEIN [CHEM] AM CBC WITH AUTO DIFF [HEME] AM COMPREHENSIVE METABOLIC PN,CMP [CHEM] AM D-DIMER QUANTITATIVE [COAG] Q48H MAGNESIUM [CHEM] AM 06/08/21 05:11 C-REACTIVE PROTEIN [CHEM] AM CBC WITH AUTO DIFF [HEME] AM COMPREHENSIVE METABOLIC PN,CMP [CHEM] AM MAGNESIUM [CHEM] AM 06/09/21 05:11 C-REACTIVE PROTEIN [CHEM] AM CBC WITH AUTO DIFF [HEME] AM COMPREHENSIVE METABOLIC PN,CMP [CHEM] AM D-DIMER QUANTITATIVE [COAG] Q48H MAGNESIUM [CHEM] AM 06/11/21 05:11 D-DIMER QUANTITATIVE [COAG] Q48H - Plan Plan:: I have examined the patient independent of DAYSI Mcdaniel and I agree with her assessment and plan as detailed above.
[2021-06-06] MEDS: REMDESIVIR 100 MG in Sodium Chloride 0.9% 100 ML IV SCH (12:26)
[2021-06-07] MEDS: Albuterol 6.7 GM Inhaler INH PRN ×3 (07:47→20:12)
[2021-06-07] MEDS: Enoxaparin 40 MG/0.4 ML Syringe SUBCUT SCH (08:59)
[2021-06-07] MEDS: Zinc Sulfate 220 MG Cap PO SCH (08:59)
[2021-06-07] MEDS: Famotidine 20 MG Tab PO SCH ×2 (08:59→20:22)
[2021-06-07] MEDS: guaiFENesin 600 MG Tab.ER PO SCH ×2 (08:59→20:22)
[2021-06-07] MEDS: Dexamethasone 4 MG Tab PO SCH (08:59)
--- NOTE | 2021-06-07 10:02 | PCM.PN ---
<Taisha Glasgow E - Last Filed: 06/07/21 11:15> - General Info Date of Service: 06/07/21 Functional Status: Reports: Pain Controlled, Tolerating Diet, Ambulating, Incentive Spirometry (Acapella) - Review of Systems General: Reports: Weakness, Fatigue. Denies: Fever, Malaise, Chills HEENT: Reports: No Symptoms. Denies: Headaches, Sore Throat, Rhinitis Pulmonary: Reports: Shortness of Breath, Pleuritic Chest Pain, Cough, Sputum Cardiovascular: Reports: Dyspnea on Exertion. Denies: Chest Pain, Palpitations, Edema, Lightheadedness Gastrointestinal: Reports: No Symptoms. Denies: Abdominal Pain, Constipation, Diarrhea, Nausea, Vomiting Genitourinary: Reports: No Symptoms. Denies: Dysuria, Frequency, Pain Musculoskeletal: Reports: No Symptoms Skin: Reports: No Symptoms. Denies: Cyanosis Neurological: Reports: No Symptoms. Denies: Confusion, Dizziness, Headache Psychiatric: Reports: No Symptoms. Denies: Confusion, Depression - Patient Data Vitals - Most Recent: Last Vital Signs Temp 97.7 F 06/07/21 09:02 Pulse 63 06/07/21 09:02 Resp 16 06/07/21 09:02 BP 134/65 06/07/21 09:02 Pulse Ox 89 L 06/07/21 09:02 Weight - Most Recent: 211 lb 3.2 oz I&O - Last 24 Hours: Intake & Output 06/06/21 06/07/21 06/07/21 22:59 06:59 14:59 Intake Total 1110 800 Balance 1110 800 Lab Results Last 24 Hours: Laboratory Results - last 24 hr 06/07/21 06/07/21 06/07/21 Range/Units 04:35 04:35 04:35 WBC 11.55 H (4.23-9.07) K/mm3 RBC 5.30 (4.63-6.08) M/mm3 Hgb 14.7 (13.7-17.5) gm/dl Hct 45.1 (40.1-51.0) % MCV 85.1 (79.0-92.2) fl MCH 27.7 (25.7-32.2) pg MCHC 32.6 (32.2-35.5) g/dl RDW Std Deviation 40.3 (35.1-43.9) fL Plt Count 233 (163-337) K/mm3 MPV 11.2 (9.4-12.3) fl Neut % (Auto) 85.8 H (34.0-67.9) % Lymph % (Auto) 6.6 L (21.8-53.1) % [place] % (Auto) 7.0 (5.3-12.2) % Eos % (Auto) 0 L (0.8-7.0) Baso % (Auto) 0.2 (0.1-1.2) % Neut # (Auto) 9.91 H (1.78-5.38) K/mm3 Lymph # (Auto) 0.76 L (1.32-3.57) K/mm3 [place] # (Auto) 0.81 (0.30-0.82) K/mm3 Eos # (Auto) 0.00 L (0.04-0.54) K/mm3 Baso # (Auto) 0.02 (0.01-0.08) K/mm3 Manual Slide Review Normal smear D-Dimer, Quantitative 0.35 (0.19-0.50) mg/L Sodium 138 (136-145) mEq/L Potassium 4.5 (3.5-5.1) mEq/L Chloride 101 (98-107) mEq/L Carbon Dioxide 28 (21-32) mEq/L Anion Gap 13.5 (5-15) BUN 24 H (7-18) mg/dL Creatinine 0.9 (0.7-1.3) mg/dL Est Cr Clr Drug Dosing 110.40 mL/min Estimated GFR (MDRD) > 60 (>60) mL/min BUN/Creatinine Ratio 26.7 H (14-18) Glucose 126 H (70-99) mg/dL Calcium 8.8 (8.5-10.1) mg/dL Magnesium 2.3 (1.8-2.4) mg/dL Total Bilirubin 0.4 (0.2-1.0) mg/dL AST 22 (15-37) U/L ALT 69 H (16-63) U/L Alkaline Phosphatase 62 (46-116) U/L C-Reactive Protein 5.7 H* (<1.0) mg/dL Total Protein 7.3 (6.4-8.2) g/dl Albumin 2.8 L (3.4-5.0) g/dl Globulin 4.5 gm/dL Albumin/Globulin Ratio 0.6 L (1-2) Med Orders - Current: Current Medications Acetaminophen (Acetaminophen 325 Mg Tab) 650 mg PO Q4H PRN PRN Reason: Pain (Mild 1-3)/fever Albuterol (Albuterol 6.7 Gm Inhaler) 0 gm INH Q2H PRN PRN Reason: SOB/Wheezing Last Admin: 06/07/21 07:47 Dose: 2 puff Documented by: Albuterol/Ipratropium (Albuterol/Ipratropium 3.0-0.5 Mg/3 Ml Neb Soln) 3 ml NEB QIDRT PRN PRN Reason: Shortness Of Breath/wheezing Benzonatate (Benzonatate 100 Mg Cap) 100 mg PO TID PRN PRN Reason: Cough Last Admin: 06/05/21 20:29 Dose: 100 mg Documented by: Dexamethasone (Dexamethasone 4 Mg Tab) 6 mg PO DAILY [facility] Stop: 06/11/21 09:01 Last Admin: 06/07/21 08:59 Dose: 6 mg Documented by: Docusate Sodium (Docusate Sodium 100 Mg Cap) 100 mg PO Q12H PRN PRN Reason: Constipation Enoxaparin Sodium (Enoxaparin 40 Mg/0.4 Ml Syringe) 40 mg SUBCUT DAILY [facility] Last Admin: 06/07/21 08:59 Dose: 40 mg Documented by: Famotidine (Famotidine 20 Mg Tab) 20 mg PO BID [facility] Last Admin: 06/07/21 08:59 Dose: 20 mg Documented by: Guaifenesin (Guaifenesin 600 Mg Tab.Er) 600 mg PO BID [facility] Last Admin: 06/07/21 08:59 Dose: 600 mg Documented by: Remdesivir 100 mg/ Sodium (Chloride) 100 mls @ 100 mls/hr IV Q24H [facility] Stop: 06/09/21 13:59 Last Admin: 06/06/21 12:26 Dose: 100 mls/hr Documented by: Ondansetron HCl (Ondansetron 4 Mg/2 Ml Sdv) 4 mg IV Q6H PRN PRN Reason: Nausea/Vomiting Last Admin: 06/05/21 18:06 Dose: 4 mg Documented by: Zinc Sulfate (Zinc Sulfate 220 Mg Cap) 220 mg PO DAILY [facility] Last Admin: 06/07/21 08:59 Dose: 220 mg Documented by: Discontinued Medications Remdesivir 200 mg/ Sodium (Chloride) 250 mls @ 250 mls/hr IV ONETIME ONE Stop: 06/05/21 13:59 Last Admin: 06/05/21 14:35 Dose: 250 mls/hr Documented by: - Exam Quality Assessment: Supplemental Oxygen (1-2L), DVT Prophylaxis. No: Urine Catheter General: Alert, Oriented, Cooperative, No Acute Distress HEENT: Pupils Equal Neck: Supple, Trachea Midline Lungs: Normal Respiratory Effort, Decreased Breath Sounds, Crackles, Wheezing Cardiovascular: Regular Rate, Regular Rhythm GI/Abdominal Exam: Normal Bowel Sounds, Soft, Non-Tender, No Distention, Hernia (umbilical ) (Male) Exam: Deferred Back Exam: Normal Inspection, Full Range of Motion Extremities: Normal Inspection, Normal Range of Motion, Non-Tender, No Pedal Edema Peripheral Pulses: 2+: Radial (L), Radial (R), Dorsalis Pedis (L), Dorsalis Pedis (R) Skin: Warm, Dry, Intact Neurological: No New Focal Deficit Psy/Mental Status: Alert, Normal Affect, Normal Mood - Patient Data Lab Results Last 24 hrs: Laboratory Results - last 24 hr 06/07/21 06/07/21 06/07/21 Range/Units 04:35 04:35 04:35 WBC 11.55 H (4.23-9.07) K/mm3 RBC 5.30 (4.63-6.08) M/mm3 Hgb 14.7 (13.7-17.5) gm/dl Hct 45.1 (40.1-51.0) % MCV 85.1 (79.0-92.2) fl MCH 27.7 (25.7-32.2) pg MCHC 32.6 (32.2-35.5) g/dl RDW Std Deviation 40.3 (35.1-43.9) fL Plt Count 233 (163-337) K/mm3 MPV 11.2 (9.4-12.3) fl Neut % (Auto) 85.8 H (34.0-67.9) % Lymph % (Auto) 6.6 L (21.8-53.1) % [place] % (Auto) 7.0 (5.3-12.2) % Eos % (Auto) 0 L (0.8-7.0) Baso % (Auto) 0.2 (0.1-1.2) % Neut # (Auto) 9.91 H (1.78-5.38) K/mm3 Lymph # (Auto) 0.76 L (1.32-3.57) K/mm3 [place] # (Auto) 0.81 (0.30-0.82) K/mm3 Eos # (Auto) 0.00 L (0.04-0.54) K/mm3 Baso # (Auto) 0.02 (0.01-0.08) K/mm3 Manual Slide Review Normal smear D-Dimer, Quantitative 0.35 (0.19-0.50) mg/L Sodium 138 (136-145) mEq/L Potassium 4.5 (3.5-5.1) mEq/L Chloride 101 (98-107) mEq/L Carbon Dioxide 28 (21-32) mEq/L Anion Gap 13.5 (5-15) BUN 24 H (7-18) mg/dL Creatinine 0.9 (0.7-1.3) mg/dL Est Cr Clr Drug Dosing 110.40 mL/min Estimated GFR (MDRD) > 60 (>60) mL/min BUN/Creatinine Ratio 26.7 H (14-18) Glucose 126 H (70-99) mg/dL Calcium 8.8 (8.5-10.1) mg/dL Magnesium 2.3 (1.8-2.4) mg/dL Total Bilirubin 0.4 (0.2-1.0) mg/dL AST 22 (15-37) U/L ALT 69 H (16-63) U/L Alkaline Phosphatase 62 (46-116) U/L C-Reactive Protein 5.7 H* (<1.0) mg/dL Total Protein 7.3 (6.4-8.2) g/dl Albumin 2.8 L (3.4-5.0) g/dl Globulin 4.5 gm/dL Albumin/Globulin Ratio 0.6 L (1-2) Result Diagrams: 06/07/21 04:35 06/07/21 04:35 Sepsis Event Note - Evaluation Sepsis Screening Result: No Definite Risk - Focused Exam Vital Signs: Vital Signs Temp Pulse Resp BP Pulse Ox Pulse Ox 06/07/21 09:02 97.7 F 63 16 134/65 89 L 06/07/21 07:47 96 06/07/21 05:31 91 L 06/07/21 05:08 97.9 F 61 18 119/73 97 - Problem List & Annotations (1) Acute respiratory failure SNOMED Code(s): 87693667 Code(s): J96.00 - ACUTE RESPIRATORY FAILURE, UNSP W HYPOXIA OR HYPERCAPNIA Status: Acute Priority: High Current Visit: Yes Qualifiers: Respiratory failure complication: hypoxia Qualified Code(s): J96.01 - Acute respiratory failure with hypoxia (2) COVID-19 SNOMED Code(s): 874551656 Code(s): U07.1 - COVID-19 Status: Acute Priority: High Current Visit: Yes (3) Elevated C-reactive protein (CRP) SNOMED Code(s): 066926451842313 Code(s): R79.82 - ELEVATED C-REACTIVE PROTEIN (CRP) Status: Acute Priority: High Current Visit: Yes (4) Hypoxia SNOMED Code(s): 533594465 Code(s): R09.02 - HYPOXEMIA Status: Acute Priority: High Current Visit: Yes (5) Leukocytosis SNOMED Code(s): 370539279, 099296884 Code(s): D72.829 - ELEVATED WHITE BLOOD CELL COUNT, UNSPECIFIED Status: Acute Priority: High Current Visit: Yes Qualifiers: Leukocytosis type: unspecified Qualified Code(s): D72.829 - Elevated white blood cell count, unspecified (6) Shortness of breath SNOMED Code(s): 744658905 Code(s): R06.02 - SHORTNESS OF BREATH Status: Acute Priority: High Current Visit: Yes (7) Former smoker SNOMED Code(s): 4508118 Code(s): Z87.891 - PERSONAL HISTORY OF NICOTINE DEPENDENCE Status: Chronic Priority: Low Current Visit: No - Problem List Review Problem List Initiated/Reviewed/Updated: Yes - Assessment Assessment:: Assessment - day of admission 06/05/2021 * 41-year-old male who presents to the ED with worsening COVID-19 pneumonia symptoms * Symptoms began on 05/27/21. * Had previously been seen in the ED on 06/02/21 at which time he was diagnosed with COVID-19. * At his ED visit on 06/02/21 he was started on dexamethasone 6mg daily, albuterol MDI, Tessalon Pearls, and Zofran. * Labs were obtained: * WBC of 11.45 * Elevated neutrophil level of 91.9% * Lymphocyte level low of 4.2%. * Hemoglobin 14.8. * D-dimer 0.29. * CRP elevated at 17.3. * Sodium 132. * Potassium 4.6. * Chloride 96. * BUN 20. Creatinine 1.0. GFR estimated to be >60. * AST 31. ALT 54. Alkaline phosphatase 55. * Albumin 2.7. * LDH 412. * Lactic acid 1.0. * Ferritin 2383. * Chest x-ray was obtained which revealed 1. Patchy areas of increased density on both sides of the chest is an interval change from prior exam. Findings are suspicious for possible COVID pneumonia. * Of note, the patient is a former smoker- quit in 2004. * He is subsequently admitted to the floor on telemetry and continuous pulse oximetry for further management of his COVID-19 pneumonia symptoms. 06/06/2021 This is a 41-year-old male admitted to the floor on 06/05/2021 for management of his COVID-19 pneumonia symptoms. He has been doing fairly well with oxygen saturations between 90-94% on 2L oxygen via nasal cannula. He has been trying to ambulate within his room and experiences significant fatigue and shortness of breath with this. He reports having a good appetite. He denies any nausea/vomiting, constipation, or diarrhea. He has been utilizing his I/S and Acapella daily. He has not been able to prone due to shortness of breath but plans to incorporate this as tolerated. Labs today were obtained: WBC 9.27. Neutrophils 87.9%. Lymphocytes 6.0%. Sodium 135. Potassium 4.7. Chloride 97. Carbon dioxide 30. Anion gap 12.7. BUN 22. Creatinine 0.8. GFR >60. Calcium 8.6. Magnesium 2.7. AST 30. ALT 57. Alkaline phosphatase 58. CRP 13.2. Albumin 2.9. Procalcitonin slightly elevated at 0.53. Vitamin D 49.4. Patient will remain hospitalized until he finishes his treatment regime or weans off of oxygen supplementation. 06/07/2021 This is a 41-year-old male admitted to the floor for management of his COVID-19 pneumonia symptoms. The patient is on 1-2L via nasal canula with oxygen saturations ranging between 89-96%. His saturations tend to drop with coughing or ambulating. He feels very weak and short of breath with even a small amount of ambulation. He has been utilizing his I/S and Acapella. He has been able to prone but states that this is quite uncomfortable and causes him to cough quite a bit. Labs today were obtained: WBC 11.55. Neutrophils 85.8%. Lymphocytes 6.6%. Hemoglobin 14.7. Sodium 138. Potassium 4.5. Chloride 101. Carbon dioxide 28. Anion gap 13.5. BUN 24. Creatinine 0.9. Calcium 8.8. Magnesium 2.3. AST 22. ALT 69. Alkaline phosphatase 62. CRP 5.7. Albumin 2.8. Blood cultures are still pending. The patient will remain hospitalized until he finishes his treatment regime and is able to wean off oxygen supplementation. - Plan Plan:: PLAN: COVID-19 Leukocytosis Hypoxia Elevated C-reactive protein (CRP) Acute respiratory failure Shortness of breath * O2 as needed to keep oxygen saturation between 88-95% * RT consult * Telemetry * Dexamethasone- day 01/22 (patient on prior) * Remdesevir- day 11/17 * Zinc supplementation * Albuterol MDI PRN * Acapella/IS * DuoNeb as needed * He is ambulatory in room so we will hold off PT/OT for now * Twice daily scheduled Mucinex * Airborne/contact precautions * Continuous pulse oximetry * Prone whenever able * Ambulate around room * Daily labs * Famotidine 20 mg twice daily * Every 48 hour D-dimer * Blood cultures pending * PRN Mark Mallory Former smoker * No acute concerns Code status: Full PCP: Was seeing Dr. Villafana. Needs to establish new PCP DVT prophylaxis: Lovneox Disposition: Admitted to medical floor for management of COVID-19 pneumonia symptoms with failed outpatient treatment. Likely length of stay 2-3 days pending improvement. <Vicente Ramires - Last Filed: 06/07/21 11:17> - Patient Data Vitals - Most Recent: Last Vital Signs Temp 97.7 F 06/07/21 09:02 Pulse 63 06/07/21 09:02 Resp 16 06/07/21 09:02 BP 134/65 06/07/21 09:02 Pulse Ox 89 L 06/07/21 09:02 I&O - Last 24 Hours: Intake & Output 06/06/21 06/07/21 06/07/21 22:59 06:59 14:59 Intake Total 1500 800 Balance 1500 800 Lab Results Last 24 Hours: Laboratory Results - last 24 hr 06/07/21 06/07/21 06/07/21 Range/Units 04:35 04:35 04:35 WBC 11.55 H (4.23-9.07) K/mm3 RBC 5.30 (4.63-6.08) M/mm3 Hgb 14.7 (13.7-17.5) gm/dl Hct 45.1 (40.1-51.0) % MCV 85.1 (79.0-92.2) fl MCH 27.7 (25.7-32.2) pg MCHC 32.6 (32.2-35.5) g/dl RDW Std Deviation 40.3 (35.1-43.9) fL Plt Count 233 (163-337) K/mm3 MPV 11.2 (9.4-12.3) fl Neut % (Auto) 85.8 H (34.0-67.9) % Lymph % (Auto) 6.6 L (21.8-53.1) % [place] % (Auto) 7.0 (5.3-12.2) % Eos % (Auto) 0 L (0.8-7.0) Baso % (Auto) 0.2 (0.1-1.2) % Neut # (Auto) 9.91 H (1.78-5.38) K/mm3 Lymph # (Auto) 0.76 L (1.32-3.57) K/mm3 [place] # (Auto) 0.81 (0.30-0.82) K/mm3 Eos # (Auto) 0.00 L (0.04-0.54) K/mm3 Baso # (Auto) 0.02 (0.01-0.08) K/mm3 Manual Slide Review Normal smear D-Dimer, Quantitative 0.35 (0.19-0.50) mg/L Sodium 138 (136-145) mEq/L Potassium 4.5 (3.5-5.1) mEq/L Chloride 101 (98-107) mEq/L Carbon Dioxide 28 (21-32) mEq/L Anion Gap 13.5 (5-15) BUN 24 H (7-18) mg/dL Creatinine 0.9 (0.7-1.3) mg/dL Est Cr Clr Drug Dosing 110.40 mL/min Estimated GFR (MDRD) > 60 (>60) mL/min BUN/Creatinine Ratio 26.7 H (14-18) Glucose 126 H (70-99) mg/dL Calcium 8.8 (8.5-10.1) mg/dL Magnesium 2.3 (1.8-2.4) mg/dL Total Bilirubin 0.4 (0.2-1.0) mg/dL AST 22 (15-37) U/L ALT 69 H (16-63) U/L Alkaline Phosphatase 62 (46-116) U/L C-Reactive Protein 5.7 H* (<1.0) mg/dL Total Protein 7.3 (6.4-8.2) g/dl Albumin 2.8 L (3.4-5.0) g/dl Globulin 4.5 gm/dL Albumin/Globulin Ratio 0.6 L (1-2) Med Orders - Current: Current Medications Acetaminophen (Acetaminophen 325 Mg Tab) 650 mg PO Q4H PRN PRN Reason: Pain (Mild 1-3)/fever Albuterol (Albuterol 6.7 Gm Inhaler) 0 gm INH Q2H PRN PRN Reason: SOB/Wheezing Last Admin: 06/07/21 07:47 Dose: 2 puff Documented by: Albuterol/Ipratropium (Albuterol/Ipratropium 3.0-0.5 Mg/3 Ml Neb Soln) 3 ml NEB QIDRT PRN PRN Reason: Shortness Of Breath/wheezing Benzonatate (Benzonatate 100 Mg Cap) 100 mg PO TID PRN PRN Reason: Cough Last Admin: 06/05/21 20:29 Dose: 100 mg Documented by: Dexamethasone (Dexamethasone 4 Mg Tab) 6 mg PO DAILY [facility] Stop: 06/11/21 09:01 Last Admin: 06/07/21 08:59 Dose: 6 mg Documented by: Docusate Sodium (Docusate Sodium 100 Mg Cap) 100 mg PO Q12H PRN PRN Reason: Constipation Enoxaparin Sodium (Enoxaparin 40 Mg/0.4 Ml Syringe) 40 mg SUBCUT DAILY [facility] Last Admin: 06/07/21 08:59 Dose: 40 mg Documented by: Famotidine (Famotidine 20 Mg Tab) 20 mg PO BID [facility] Last Admin: 06/07/21 08:59 Dose: 20 mg Documented by: Guaifenesin (Guaifenesin 600 Mg Tab.Er) 600 mg PO BID [facility] Last Admin: 06/07/21 08:59 Dose: 600 mg Documented by: Remdesivir 100 mg/ Sodium (Chloride) 100 mls @ 100 mls/hr IV Q24H [facility] Stop: 06/09/21 13:59 Last Admin: 06/06/21 12:26 Dose: 100 mls/hr Documented by: Ondansetron HCl (Ondansetron 4 Mg/2 Ml Sdv) 4 mg IV Q6H PRN PRN Reason: Nausea/Vomiting Last Admin: 06/05/21 18:06 Dose: 4 mg Documented by: Zinc Sulfate (Zinc Sulfate 220 Mg Cap) 220 mg PO DAILY [facility] Last Admin: 06/07/21 08:59 Dose: 220 mg Documented by: Discontinued Medications Remdesivir 200 mg/ Sodium (Chloride) 250 mls @ 250 mls/hr IV ONETIME ONE Stop: 06/05/21 13:59 Last Admin: 06/05/21 14:35 Dose: 250 mls/hr Documented by: - Patient Data Lab Results Last 24 hrs: Laboratory Results - last 24 hr 06/07/21 06/07/21 06/07/21 Range/Units 04:35 04:35 04:35 WBC 11.55 H (4.23-9.07) K/mm3 RBC 5.30 (4.63-6.08) M/mm3 Hgb 14.7 (13.7-17.5) gm/dl Hct 45.1 (40.1-51.0) % MCV 85.1 (79.0-92.2) fl MCH 27.7 (25.7-32.2) pg MCHC 32.6 (32.2-35.5) g/dl RDW Std Deviation 40.3 (35.1-43.9) fL Plt Count 233 (163-337) K/mm3 MPV 11.2 (9.4-12.3) fl Neut % (Auto) 85.8 H (34.0-67.9) % Lymph % (Auto) 6.6 L (21.8-53.1) % [place] % (Auto) 7.0 (5.3-12.2) % Eos % (Auto) 0 L (0.8-7.0) Baso % (Auto) 0.2 (0.1-1.2) % Neut # (Auto) 9.91 H (1.78-5.38) K/mm3 Lymph # (Auto) 0.76 L (1.32-3.57) K/mm3 [place] # (Auto) 0.81 (0.30-0.82) K/mm3 Eos # (Auto) 0.00 L (0.04-0.54) K/mm3 Baso # (Auto) 0.02 (0.01-0.08) K/mm3 Manual Slide Review Normal smear D-Dimer, Quantitative 0.35 (0.19-0.50) mg/L Sodium 138 (136-145) mEq/L Potassium 4.5 (3.5-5.1) mEq/L Chloride 101 (98-107) mEq/L Carbon Dioxide 28 (21-32) mEq/L Anion Gap 13.5 (5-15) BUN 24 H (7-18) mg/dL Creatinine 0.9 (0.7-1.3) mg/dL Est Cr Clr Drug Dosing 110.40 mL/min Estimated GFR (MDRD) > 60 (>60) mL/min BUN/Creatinine Ratio 26.7 H (14-18) Glucose 126 H (70-99) mg/dL Calcium 8.8 (8.5-10.1) mg/dL Magnesium 2.3 (1.8-2.4) mg/dL Total Bilirubin 0.4 (0.2-1.0) mg/dL AST 22 (15-37) U/L ALT 69 H (16-63) U/L Alkaline Phosphatase 62 (46-116) U/L C-Reactive Protein 5.7 H* (<1.0) mg/dL Total Protein 7.3 (6.4-8.2) g/dl Albumin 2.8 L (3.4-5.0) g/dl Globulin 4.5 gm/dL Albumin/Globulin Ratio 0.6 L (1-2) Result Diagrams: 06/07/21 04:35 06/07/21 04:35 Sepsis Event Note - Focused Exam Vital Signs: Vital Signs Temp Pulse Resp BP Pulse Ox Pulse Ox 06/07/21 09:02 97.7 F 63 16 134/65 89 L 06/07/21 07:47 96 06/07/21 05:31 91 L 06/07/21 05:08 97.9 F 61 18 119/73 97 - Problem List & Annotations (1) Leukocytosis SNOMED Code(s): 393075174, 815613990 Code(s): D72.829 - ELEVATED WHITE BLOOD CELL COUNT, UNSPECIFIED Status: Acute Priority: High Current Visit: Yes Qualifiers: Leukocytosis type: unspecified Qualified Code(s): D72.829 - Elevated white blood cell count, unspecified (2) Hypoxia SNOMED Code(s): 957681871 Code(s): R09.02 - HYPOXEMIA Status: Acute Priority: High Current Visit: Yes (3) Elevated C-reactive protein (CRP) SNOMED Code(s): 544312154763317 Code(s): R79.82 - ELEVATED C-REACTIVE PROTEIN (CRP) Status: Acute Priority: High Current Visit: Yes (4) Acute respiratory failure SNOMED Code(s): 71584711 Code(s): J96.00 - ACUTE RESPIRATORY FAILURE, UNSP W HYPOXIA OR HYPERCAPNIA Status: Acute Priority: High Current Visit: Yes Qualifiers: Respiratory failure complication: hypoxia Qualified Code(s): J96.01 - Acute respiratory failure with hypoxia (5) Shortness of breath SNOMED Code(s): 348949557 Code(s): R06.02 - SHORTNESS OF BREATH Status: Acute Priority: High Current Visit: Yes (6) Former smoker SNOMED Code(s): 9837641 Code(s): Z87.891 - PERSONAL HISTORY OF NICOTINE DEPENDENCE Status: Chronic Priority: Low Current Visit: No (7) COVID-19 SNOMED Code(s): 437601036 Code(s): U07.1 - COVID-19 Status: Acute Priority: High Current Visit: Yes - My Orders Last 24 Hours: My Active Orders 06/06/21 13:00 Remdesivir 100 mg Sodium Chloride 0.9% [Normal Saline] 100 ml IV Q24H 06/08/21 05:11 C-REACTIVE PROTEIN [CHEM] AM CBC WITH AUTO DIFF [HEME] AM COMPREHENSIVE METABOLIC PN,CMP [CHEM] AM MAGNESIUM [CHEM] AM 06/09/21 05:11 C-REACTIVE PROTEIN [CHEM] AM CBC WITH AUTO DIFF [HEME] AM COMPREHENSIVE METABOLIC PN,CMP [CHEM] AM D-DIMER QUANTITATIVE [COAG] Q48H MAGNESIUM [CHEM] AM 06/11/21 05:11 D-DIMER QUANTITATIVE [COAG] Q48H - Plan Plan:: I have examined the patient independent of DAYSI Mcdaniel and I agree with her assessment and plan as detailed above.
[2021-06-07] MEDS: REMDESIVIR 100 MG in Sodium Chloride 0.9% 100 ML IV SCH (13:22)
[2021-06-08] MEDS: Albuterol 6.7 GM Inhaler INH PRN (08:44)
[2021-06-08] MEDS: Famotidine 20 MG Tab PO SCH ×2 (09:03→21:28)
[2021-06-08] MEDS: Dexamethasone 4 MG Tab PO SCH (09:04)
[2021-06-08] MEDS: Enoxaparin 40 MG/0.4 ML Syringe SUBCUT SCH (09:04)
[2021-06-08] MEDS: guaiFENesin 600 MG Tab.ER PO SCH ×2 (09:04→21:28)
[2021-06-08] MEDS: Zinc Sulfate 220 MG Cap PO SCH (09:04)
--- NOTE | 2021-06-08 09:51 | PCM.PN ---
<Taisha Glasgow E - Last Filed: 06/08/21 10:29> - General Info Date of Service: 06/08/21 Functional Status: Reports: Pain Controlled, Tolerating Diet, Ambulating, Incentive Spirometry (Acapella) - Review of Systems General: Reports: Weakness, Fatigue. Denies: Fever, Chills HEENT: Reports: No Symptoms. Denies: Headaches, Sore Throat Pulmonary: Reports: Shortness of Breath, Pleuritic Chest Pain, Cough, Sputum. Denies: Wheezing Cardiovascular: Reports: Dyspnea on Exertion. Denies: Chest Pain, Palpitations, Edema, Lightheadedness Gastrointestinal: Reports: No Symptoms. Denies: Abdominal Pain, Constipation, Decreased Appetite, Diarrhea, Nausea, Vomiting Genitourinary: Reports: No Symptoms. Denies: Dysuria, Frequency, Pain Musculoskeletal: Reports: No Symptoms Skin: Reports: No Symptoms. Denies: Cyanosis Neurological: Reports: No Symptoms. Denies: Confusion, Dizziness, Headache - Patient Data Vitals - Most Recent: Last Vital Signs Temp 97.9 F 06/08/21 08:40 Pulse 62 06/08/21 08:40 Resp 20 06/08/21 08:40 BP 106/68 06/08/21 08:40 Pulse Ox 90 L 06/08/21 08:46 Weight - Most Recent: 94.256 kg I&O - Last 24 Hours: Intake & Output 06/07/21 06/08/21 06/08/21 22:59 06:59 14:59 Intake Total 1091 800 Balance 1091 800 Lab Results Last 24 Hours: Laboratory Results - last 24 hr 06/08/21 06/08/21 Range/Units 05:00 05:00 WBC 11.38 H (4.23-9.07) K/mm3 RBC 5.23 (4.63-6.08) M/mm3 Hgb 14.5 (13.7-17.5) gm/dl Hct 44.5 (40.1-51.0) % MCV 85.1 (79.0-92.2) fl MCH 27.7 (25.7-32.2) pg MCHC 32.6 (32.2-35.5) g/dl RDW Std Deviation 39.6 (35.1-43.9) fL Plt Count 267 (163-337) K/mm3 MPV 11.0 (9.4-12.3) fl Neut % (Auto) 82.7 H (34.0-67.9) % Lymph % (Auto) 8.8 L (21.8-53.1) % Lanier % (Auto) 7.5 (5.3-12.2) % Eos % (Auto) 0 L (0.8-7.0) Baso % (Auto) 0.1 (0.1-1.2) % Neut # (Auto) 9.42 H (1.78-5.38) K/mm3 Lymph # (Auto) 1.00 L (1.32-3.57) K/mm3 Lanier # (Auto) 0.85 H (0.30-0.82) K/mm3 Eos # (Auto) 0.00 L (0.04-0.54) K/mm3 Baso # (Auto) 0.01 (0.01-0.08) K/mm3 Manual Slide Review Normal smear Sodium 139 (136-145) mEq/L Potassium 4.4 (3.5-5.1) mEq/L Chloride 103 (98-107) mEq/L Carbon Dioxide 27 (21-32) mEq/L Anion Gap 13.4 (5-15) BUN 25 H (7-18) mg/dL Creatinine 0.9 (0.7-1.3) mg/dL Est Cr Clr Drug Dosing 110.40 mL/min Estimated GFR (MDRD) > 60 (>60) mL/min BUN/Creatinine Ratio 27.8 H (14-18) Glucose 105 H (70-99) mg/dL Calcium 8.4 L (8.5-10.1) mg/dL Magnesium 2.1 (1.8-2.4) mg/dL Total Bilirubin 0.4 (0.2-1.0) mg/dL AST 25 (15-37) U/L ALT 99 H (16-63) U/L Alkaline Phosphatase 57 (46-116) U/L C-Reactive Protein 2.8 H* (<1.0) mg/dL Total Protein 6.9 (6.4-8.2) g/dl Albumin 2.7 L (3.4-5.0) g/dl Globulin 4.2 gm/dL Albumin/Globulin Ratio 0.6 L (1-2) Kaushal Results Last 24 Hours: Microbiology 06/05/21 12:45 Blood Culture - Preliminary Blood - Venous - Lab Draw 06/05/21 12:40 Blood Culture - Preliminary Blood - Venous Med Orders - Current: Current Medications Acetaminophen (Acetaminophen 325 Mg Tab) 650 mg PO Q4H PRN PRN Reason: Pain (Mild 1-3)/fever Albuterol (Albuterol 6.7 Gm Inhaler) 0 gm INH Q2H PRN PRN Reason: SOB/Wheezing Last Admin: 06/08/21 08:44 Dose: 2 puff Documented by: Albuterol/Ipratropium (Albuterol/Ipratropium 3.0-0.5 Mg/3 Ml Neb Soln) 3 ml NEB QIDRT PRN PRN Reason: Shortness Of Breath/wheezing Benzonatate (Benzonatate 100 Mg Cap) 100 mg PO TID PRN PRN Reason: Cough Last Admin: 06/05/21 20:29 Dose: 100 mg Documented by: Dexamethasone (Dexamethasone 4 Mg Tab) 6 mg PO DAILY [facility] Stop: 06/11/21 09:01 Last Admin: 06/08/21 09:04 Dose: 6 mg Documented by: Docusate Sodium (Docusate Sodium 100 Mg Cap) 100 mg PO Q12H PRN PRN Reason: Constipation Enoxaparin Sodium (Enoxaparin 40 Mg/0.4 Ml Syringe) 40 mg SUBCUT DAILY [facility] Last Admin: 06/08/21 09:04 Dose: 40 mg Documented by: Famotidine (Famotidine 20 Mg Tab) 20 mg PO BID [facility] Last Admin: 06/08/21 09:03 Dose: 20 mg Documented by: Guaifenesin (Guaifenesin 600 Mg Tab.Er) 600 mg PO BID [facility] Last Admin: 06/08/21 09:04 Dose: 600 mg Documented by: Remdesivir 100 mg/ Sodium (Chloride) 100 mls @ 100 mls/hr IV Q24H [facility] Stop: 06/09/21 13:59 Last Admin: 06/07/21 13:22 Dose: 100 mls/hr Documented by: Ondansetron HCl (Ondansetron 4 Mg/2 Ml Sdv) 4 mg IV Q6H PRN PRN Reason: Nausea/Vomiting Last Admin: 06/05/21 18:06 Dose: 4 mg Documented by: Zinc Sulfate (Zinc Sulfate 220 Mg Cap) 220 mg PO DAILY [facility] Last Admin: 06/08/21 09:04 Dose: 220 mg Documented by: Discontinued Medications Remdesivir 200 mg/ Sodium (Chloride) 250 mls @ 250 mls/hr IV ONETIME ONE Stop: 06/05/21 13:59 Last Admin: 06/05/21 14:35 Dose: 250 mls/hr Documented by: - Exam Quality Assessment: Supplemental Oxygen (0.5-1L), DVT Prophylaxis. No: Urine Catheter General: Alert, Oriented, Cooperative, No Acute Distress HEENT: Pupils Equal Neck: Supple, Trachea Midline Lungs: Normal Respiratory Effort, Decreased Breath Sounds, Crackles Cardiovascular: Regular Rate, Regular Rhythm GI/Abdominal Exam: Normal Bowel Sounds, Soft, Non-Tender, No Distention (Male) Exam: Deferred Back Exam: Normal Inspection, Full Range of Motion Extremities: Normal Inspection, Normal Range of Motion, Non-Tender, No Pedal Edema Peripheral Pulses: 2+: Radial (L), Radial (R), Dorsalis Pedis (L), Dorsalis Pedis (R) Skin: Warm, Dry, Intact Neurological: No New Focal Deficit Psy/Mental Status: Alert, Normal Affect, Normal Mood - Patient Data Lab Results Last 24 hrs: Laboratory Results - last 24 hr 06/08/21 06/08/21 Range/Units 05:00 05:00 WBC 11.38 H (4.23-9.07) K/mm3 RBC 5.23 (4.63-6.08) M/mm3 Hgb 14.5 (13.7-17.5) gm/dl Hct 44.5 (40.1-51.0) % MCV 85.1 (79.0-92.2) fl MCH 27.7 (25.7-32.2) pg MCHC 32.6 (32.2-35.5) g/dl RDW Std Deviation 39.6 (35.1-43.9) fL Plt Count 267 (163-337) K/mm3 MPV 11.0 (9.4-12.3) fl Neut % (Auto) 82.7 H (34.0-67.9) % Lymph % (Auto) 8.8 L (21.8-53.1) % Lanier % (Auto) 7.5 (5.3-12.2) % Eos % (Auto) 0 L (0.8-7.0) Baso % (Auto) 0.1 (0.1-1.2) % Neut # (Auto) 9.42 H (1.78-5.38) K/mm3 Lymph # (Auto) 1.00 L (1.32-3.57) K/mm3 Lanier # (Auto) 0.85 H (0.30-0.82) K/mm3 Eos # (Auto) 0.00 L (0.04-0.54) K/mm3 Baso # (Auto) 0.01 (0.01-0.08) K/mm3 Manual Slide Review Normal smear Sodium 139 (136-145) mEq/L Potassium 4.4 (3.5-5.1) mEq/L Chloride 103 (98-107) mEq/L Carbon Dioxide 27 (21-32) mEq/L Anion Gap 13.4 (5-15) BUN 25 H (7-18) mg/dL Creatinine 0.9 (0.7-1.3) mg/dL Est Cr Clr Drug Dosing 110.40 mL/min Estimated GFR (MDRD) > 60 (>60) mL/min BUN/Creatinine Ratio 27.8 H (14-18) Glucose 105 H (70-99) mg/dL Calcium 8.4 L (8.5-10.1) mg/dL Magnesium 2.1 (1.8-2.4) mg/dL Total Bilirubin 0.4 (0.2-1.0) mg/dL AST 25 (15-37) U/L ALT 99 H (16-63) U/L Alkaline Phosphatase 57 (46-116) U/L C-Reactive Protein 2.8 H* (<1.0) mg/dL Total Protein 6.9 (6.4-8.2) g/dl Albumin 2.7 L (3.4-5.0) g/dl Globulin 4.2 gm/dL Albumin/Globulin Ratio 0.6 L (1-2) Result Diagrams: 06/08/21 05:00 06/08/21 05:00 Kaushal Results Last 24 hrs: Microbiology 06/05/21 12:45 Blood Culture - Preliminary Blood - Venous - Lab Draw 06/05/21 12:40 Blood Culture - Preliminary Blood - Venous Sepsis Event Note - Evaluation Sepsis Screening Result: No Definite Risk - Focused Exam Vital Signs: Vital Signs Temp Pulse Resp BP Pulse Ox Pulse Ox 06/08/21 08:46 90 L 06/08/21 08:40 97.9 F 62 20 106/68 89 L 06/08/21 04:40 98.1 F 70 16 129/83 97 - Problem List & Annotations (1) Acute respiratory failure SNOMED Code(s): 43747141 Code(s): J96.00 - ACUTE RESPIRATORY FAILURE, UNSP W HYPOXIA OR HYPERCAPNIA Status: Acute Priority: High Qualifiers: Respiratory failure complication: hypoxia Qualified Code(s): J96.01 - Acute respiratory failure with hypoxia (2) COVID-19 SNOMED Code(s): 826235899 Code(s): U07.1 - COVID-19 Status: Acute Priority: High (3) Elevated C-reactive protein (CRP) SNOMED Code(s): 937688962191428 Code(s): R79.82 - ELEVATED C-REACTIVE PROTEIN (CRP) Status: Acute Priority: High (4) Hypoxia SNOMED Code(s): 358767219 Code(s): R09.02 - HYPOXEMIA Status: Acute Priority: High (5) Leukocytosis SNOMED Code(s): 227900576, 392962648 Code(s): D72.829 - ELEVATED WHITE BLOOD CELL COUNT, UNSPECIFIED Status: Acute Priority: High Qualifiers: Leukocytosis type: unspecified Qualified Code(s): D72.829 - Elevated white blood cell count, unspecified (6) Shortness of breath SNOMED Code(s): 389669353 Code(s): R06.02 - SHORTNESS OF BREATH Status: Acute Priority: High (7) Former smoker SNOMED Code(s): 4478861 Code(s): Z87.891 - PERSONAL HISTORY OF NICOTINE DEPENDENCE Status: Chronic Priority: Low - Problem List Review Problem List Initiated/Reviewed/Updated: Yes - Assessment Assessment:: Assessment - day of admission 06/05/2021 * 41-year-old male who presents to the ED with worsening COVID-19 pneumonia symptoms * Symptoms began on 05/27/21. * Had previously been seen in the ED on 06/02/21 at which time he was diagnosed with COVID-19. * At his ED visit on 06/02/21 he was started on dexamethasone 6mg daily, albutero l MDI, Tessalon Pearls, and Zofran. * Labs were obtained: * WBC of 11.45 * Elevated neutrophil level of 91.9% * Lymphocyte level low of 4.2%. * Hemoglobin 14.8. * D-dimer 0.29. * CRP elevated at 17.3. * Sodium 132. * Potassium 4.6. * Chloride 96. * BUN 20. Creatinine 1.0. GFR estimated to be >60. * AST 31. ALT 54. Alkaline phosphatase 55. * Albumin 2.7. * LDH 412. * Lactic acid 1.0. * Ferritin 2383. * Chest x-ray was obtained which revealed 1. Patchy areas of increased density on both sides of the chest is an interval change from prior exam. Findings are suspicious for possible COVID pneumonia. * Of note, the patient is a former smoker- quit in 2004. * He is subsequently admitted to the floor on telemetry and continuous pulse oximetry for further management of his COVID-19 pneumonia symptoms. 06/06/2021 This is a 41-year-old male admitted to the floor on 06/05/2021 for management of his COVID-19 pneumonia symptoms. He has been doing fairly well with oxygen saturations between 90-94% on 2L oxygen via nasal cannula. He has been trying to ambulate within his room and experiences significant fatigue and shortness of breath with this. He reports having a good appetite. He denies any nausea/vomiting, constipation, or diarrhea. He has been utilizing his I/S and Acapella daily. He has not been able to prone due to shortness of breath but plans to incorporate this as tolerated. Labs today were obtained: WBC 9.27. Neutrophils 87.9%. Lymphocytes 6.0%. Sodium 135. Potassium 4.7. Chloride 97. Carbon dioxide 30. Anion gap 12.7. BUN 22. Creatinine 0.8. GFR >60. Calcium 8.6. Magnesium 2.7. AST 30. ALT 57. Alkaline phosphatase 58. CRP 13.2. Albumin 2.9. Procalcitonin slightly elevated at 0.53. Vitamin D 49.4. Patient will remain hospitalized until he finishes his treatment regime or weans off of oxygen supplementation. 06/07/2021 This is a 41-year-old male admitted to the floor for management of his COVID-19 pneumonia symptoms. The patient is on 1-2L via nasal canula with oxygen saturations ranging between 89-96%. His saturations tend to drop with coughing or ambulating. He feels very weak and short of breath with even a small amount of ambulation. He has been utilizing his I/S and Acapella. He has been able to prone but states that this is quite uncomfortable and causes him to cough quite a bit. Labs today were obtained: WBC 11.55. Neutrophils 85.8%. Lymphocytes 6.6%. Hemoglobin 14.7. Sodium 138. Potassium 4.5. Chloride 101. Carbon dioxide 28. Anion gap 13.5. BUN 24. Creatinine 0.9. Calcium 8.8. Magnesium 2.3. AST 22. ALT 69. Alkaline phosphatase 62. CRP 5.7. Albumin 2.8. Blood cultures are still pend ing. The patient will remain hospitalized until he finishes his treatment regime and is able to wean off oxygen supplementation. 06/08/2021 This is a 41-year-old male admitted to the floor for management of his COVID-19 pneumonia symptoms. He is doing quite well today and states that he can tell his is improving. He has been maintaining oxygen saturations with 0.5-1L oxygen via nasal canula. He was put on room air this morning to see if he can maintain saturations without supplemental oxygen. He still reports having a cough and shortness of breath with exertion. He is tolerating food and denies any abdominal pain or diarrhea. Labs today were obtained: WBC 11.38. Hemoglobin 14.5. Platelets 267,000. Sodium 139. Potassium 4.4. Chloride 103. Anion gap 13.4. BUN 25. Creatinine 0.9. Calcium 8.4. Magnesium 2.1. AST 25. ALT 99. Alkaline phosphatase 57. CRP 2.8. Albumin 2.7. Blood cultures came back negative. The patient is doing much better overall. Hopeful for discharge tomorrow once he finishes his remdesivir and as long as he maintains stable oxygen saturations. - Plan Plan:: PLAN: COVID-19 Leukocytosis Hypoxia Elevated C-reactive protein (CRP) Acute respiratory failure Shortness of breath * O2 as needed to keep oxygen saturation between 88-95% * RT consult * Telemetry * Dexamethasone- day 02/22 (patient on prior) * Remdesevir- day 12/18 * Zinc supplementation * Albuterol MDI PRN * Acapella/IS * DuoNeb as needed * He is ambulatory in room so we will hold off PT/OT for now * Twice daily scheduled Mucinex * Airborne/contact precautions * Continuous pulse oximetry * Prone whenever able * Ambulate around room * Daily labs * Famotidine 20 mg twice daily * Every 48 hour D-dimer * PRN Mark Mallory Former smoker * No acute concerns Code status: Full PCP: Was seeing Dr. Villafana. Needs to establish new PCP DVT prophylaxis: Lovneox Disposition: Admitted to medical floor for management of COVID-19 pneumonia symptoms with failed outpatient treatment. Patient will likely discharge tomorrow once treatment regime completed and able to maintain oxygen saturations. LOS > 96 hours due to need of continuous management of COVID-19 symptoms. <Vicente Ramires - Last Filed: 06/08/21 10:30> - Patient Data Vitals - Most Recent: Last Vital Signs Temp 97.9 F 06/08/21 08:40 Pulse 62 06/08/21 08:40 Resp 20 06/08/21 08:40 BP 106/68 06/08/21 08:40 Pulse Ox 90 L 06/08/21 08:46 I&O - Last 24 Hours: Intake & Output 06/07/21 06/08/21 06/08/21 22:59 06:59 14:59 Intake Total 1091 800 Balance 1091 800 Lab Results Last 24 Hours: Laboratory Results - last 24 hr 06/08/21 06/08/21 Range/Units 05:00 05:00 WBC 11.38 H (4.23-9.07) K/mm3 RBC 5.23 (4.63-6.08) M/mm3 Hgb 14.5 (13.7-17.5) gm/dl Hct 44.5 (40.1-51.0) % MCV 85.1 (79.0-92.2) fl MCH 27.7 (25.7-32.2) pg MCHC 32.6 (32.2-35.5) g/dl RDW Std Deviation 39.6 (35.1-43.9) fL Plt Count 267 (163-337) K/mm3 MPV 11.0 (9.4-12.3) fl Neut % (Auto) 82.7 H (34.0-67.9) % Lymph % (Auto) 8.8 L (21.8-53.1) % Lanier % (Auto) 7.5 (5.3-12.2) % Eos % (Auto) 0 L (0.8-7.0) Baso % (Auto) 0.1 (0.1-1.2) % Neut # (Auto) 9.42 H (1.78-5.38) K/mm3 Lymph # (Auto) 1.00 L (1.32-3.57) K/mm3 Lanier # (Auto) 0.85 H (0.30-0.82) K/mm3 Eos # (Auto) 0.00 L (0.04-0.54) K/mm3 Baso # (Auto) 0.01 (0.01-0.08) K/mm3 Manual Slide Review Normal smear Sodium 139 (136-145) mEq/L Potassium 4.4 (3.5-5.1) mEq/L Chloride 103 (98-107) mEq/L Carbon Dioxide 27 (21-32) mEq/L Anion Gap 13.4 (5-15) BUN 25 H (7-18) mg/dL Creatinine 0.9 (0.7-1.3) mg/dL Est Cr Clr Drug Dosing 110.40 mL/min Estimated GFR (MDRD) > 60 (>60) mL/min BUN/Creatinine Ratio 27.8 H (14-18) Glucose 105 H (70-99) mg/dL Calcium 8.4 L (8.5-10.1) mg/dL Magnesium 2.1 (1.8-2.4) mg/dL Total Bilirubin 0.4 (0.2-1.0) mg/dL AST 25 (15-37) U/L ALT 99 H (16-63) U/L Alkaline Phosphatase 57 (46-116) U/L C-Reactive Protein 2.8 H* (<1.0) mg/dL Total Protein 6.9 (6.4-8.2) g/dl Albumin 2.7 L (3.4-5.0) g/dl Globulin 4.2 gm/dL Albumin/Globulin Ratio 0.6 L (1-2) Kaushal Results Last 24 Hours: Microbiology 06/05/21 12:45 Blood Culture - Preliminary Blood - Venous - Lab Draw 06/05/21 12:40 Blood Culture - Preliminary Blood - Venous Med Orders - Current: Current Medications Acetaminophen (Acetaminophen 325 Mg Tab) 650 mg PO Q4H PRN PRN Reason: Pain (Mild 1-3)/fever Albuterol (Albuterol 6.7 Gm Inhaler) 0 gm INH Q2H PRN PRN Reason: SOB/Wheezing Last Admin: 06/08/21 08:44 Dose: 2 puff Documented by: Albuterol/Ipratropium (Albuterol/Ipratropium 3.0-0.5 Mg/3 Ml Neb Soln) 3 ml NEB QIDRT PRN PRN Reason: Shortness Of Breath/wheezing Benzonatate (Benzonatate 100 Mg Cap) 100 mg PO TID PRN PRN Reason: Cough Last Admin: 06/05/21 20:29 Dose: 100 mg Documented by: Dexamethasone (Dexamethasone 4 Mg Tab) 6 mg PO DAILY [facility] Stop: 06/11/21 09:01 Last Admin: 06/08/21 09:04 Dose: 6 mg Documented by: Docusate Sodium (Docusate Sodium 100 Mg Cap) 100 mg PO Q12H PRN PRN Reason: Constipation Enoxaparin Sodium (Enoxaparin 40 Mg/0.4 Ml Syringe) 40 mg SUBCUT DAILY [facility] Last Admin: 06/08/21 09:04 Dose: 40 mg Documented by: Famotidine (Famotidine 20 Mg Tab) 20 mg PO BID [facility] Last Admin: 06/08/21 09:03 Dose: 20 mg Documented by: Guaifenesin (Guaifenesin 600 Mg Tab.Er) 600 mg PO BID [facility] Last Admin: 06/08/21 09:04 Dose: 600 mg Documented by: Remdesivir 100 mg/ Sodium (Chloride) 100 mls @ 100 mls/hr IV Q24H [facility] Stop: 06/09/21 13:59 Last Admin: 06/07/21 13:22 Dose: 100 mls/hr Documented by: Ondansetron HCl (Ondansetron 4 Mg/2 Ml Sdv) 4 mg IV Q6H PRN PRN Reason: Nausea/Vomiting Last Admin: 06/05/21 18:06 Dose: 4 mg Documented by: Zinc Sulfate (Zinc Sulfate 220 Mg Cap) 220 mg PO DAILY [facility] Last Admin: 06/08/21 09:04 Dose: 220 mg Documented by: Discontinued Medications Remdesivir 200 mg/ Sodium (Chloride) 250 mls @ 250 mls/hr IV ONETIME ONE Stop: 06/05/21 13:59 Last Admin: 06/05/21 14:35 Dose: 250 mls/hr Documented by: - Patient Data Lab Results Last 24 hrs: Laboratory Results - last 24 hr 06/08/21 06/08/21 Range/Units 05:00 05:00 WBC 11.38 H (4.23-9.07) K/mm3 RBC 5.23 (4.63-6.08) M/mm3 Hgb 14.5 (13.7-17.5) gm/dl Hct 44.5 (40.1-51.0) % MCV 85.1 (79.0-92.2) fl MCH 27.7 (25.7-32.2) pg MCHC 32.6 (32.2-35.5) g/dl RDW Std Deviation 39.6 (35.1-43.9) fL Plt Count 267 (163-337) K/mm3 MPV 11.0 (9.4-12.3) fl Neut % (Auto) 82.7 H (34.0-67.9) % Lymph % (Auto) 8.8 L (21.8-53.1) % Lanier % (Auto) 7.5 (5.3-12.2) % Eos % (Auto) 0 L (0.8-7.0) Baso % (Auto) 0.1 (0.1-1.2) % Neut # (Auto) 9.42 H (1.78-5.38) K/mm3 Lymph # (Auto) 1.00 L (1.32-3.57) K/mm3 Lanier # (Auto) 0.85 H (0.30-0.82) K/mm3 Eos # (Auto) 0.00 L (0.04-0.54) K/mm3 Baso # (Auto) 0.01 (0.01-0.08) K/mm3 Manual Slide Review Normal smear Sodium 139 (136-145) mEq/L Potassium 4.4 (3.5-5.1) mEq/L Chloride 103 (98-107) mEq/L Carbon Dioxide 27 (21-32) mEq/L Anion Gap 13.4 (5-15) BUN 25 H (7-18) mg/dL Creatinine 0.9 (0.7-1.3) mg/dL Est Cr Clr Drug Dosing 110.40 mL/min Estimated GFR (MDRD) > 60 (>60) mL/min BUN/Creatinine Ratio 27.8 H (14-18) Glucose 105 H (70-99) mg/dL Calcium 8.4 L (8.5-10.1) mg/dL Magnesium 2.1 (1.8-2.4) mg/dL Total Bilirubin 0.4 (0.2-1.0) mg/dL AST 25 (15-37) U/L ALT 99 H (16-63) U/L Alkaline Phosphatase 57 (46-116) U/L C-Reactive Protein 2.8 H* (<1.0) mg/dL Total Protein 6.9 (6.4-8.2) g/dl Albumin 2.7 L (3.4-5.0) g/dl Globulin 4.2 gm/dL Albumin/Globulin Ratio 0.6 L (1-2) Result Diagrams: 06/08/21 05:00 06/08/21 05:00 Kaushal Results Last 24 hrs: Microbiology 06/05/21 12:45 Blood Culture - Preliminary Blood - Venous - Lab Draw 06/05/21 12:40 Blood Culture - Preliminary Blood - Venous Sepsis Event Note - Focused Exam Vital Signs: Vital Signs Temp Pulse Resp BP Pulse Ox Pulse Ox 06/08/21 08:46 90 L 06/08/21 08:40 97.9 F 62 20 106/68 89 L 06/08/21 04:40 98.1 F 70 16 129/83 97 - Problem List & Annotations (1) Leukocytosis SNOMED Code(s): 200829696, 791932343 Code(s): D72.829 - ELEVATED WHITE BLOOD CELL COUNT, UNSPECIFIED Status: Acute Priority: High Qualifiers: Leukocytosis type: unspecified Qualified Code(s): D72.829 - Elevated white blood cell count, unspecified (2) Hypoxia SNOMED Code(s): 661308951 Code(s): R09.02 - HYPOXEMIA Status: Acute Priority: High (3) Elevated C-reactive protein (CRP) SNOMED Code(s): 143486480293272 Code(s): R79.82 - ELEVATED C-REACTIVE PROTEIN (CRP) Status: Acute Priority: High (4) Acute respiratory failure SNOMED Code(s): 58864131 Code(s): J96.00 - ACUTE RESPIRATORY FAILURE, UNSP W HYPOXIA OR HYPERCAPNIA Status: Acute Priority: High Qualifiers: Respiratory failure complication: hypoxia Qualified Code(s): J96.01 - Acute respiratory failure with hypoxia (5) Shortness of breath SNOMED Code(s): 847673541 Code(s): R06.02 - SHORTNESS OF BREATH Status: Acute Priority: High (6) Former smoker SNOMED Code(s): 6287551 Code(s): Z87.891 - PERSONAL HISTORY OF NICOTINE DEPENDENCE Status: Chronic Priority: Low (7) COVID-19 SNOMED Code(s): 724566189 Code(s): U07.1 - COVID-19 Status: Acute Priority: High - My Orders Last 24 Hours: My Active Orders 06/08/21 08:24 PROCALCITONIN [REF] Routine 06/09/21 05:11 C-REACTIVE PROTEIN [CHEM] AM CBC WITH AUTO DIFF [HEME] AM COMPREHENSIVE METABOLIC PN,CMP [CHEM] AM D-DIMER QUANTITATIVE [COAG] Q48H MAGNESIUM [CHEM] AM 06/11/21 05:11 D-DIMER QUANTITATIVE [COAG] Q48H - Plan Plan:: I have examined the patient independent of DAYSI Mcdaniel and I agree with her assessment and plan as detailed above. <Bakari Franco - Last Filed: 06/09/21 16:40> - Patient Data Vitals - Most Recent: Last Vital Signs Temp 36.6 C 06/09/21 08:36 Pulse 74 06/09/21 08:36 Resp 17 06/09/21 08:36 BP 127/65 06/09/21 08:36 Pulse Ox 93 L 06/09/21 12:00 I&O - Last 24 Hours: Intake & Output 06/09/21 06/09/21 06/09/21 06:59 14:59 22:59 Intake Total 800 120 Balance 800 120 Lab Results Last 24 Hours: Laboratory Results - last 24 hr 06/08/21 06/09/21 06/09/21 Range/Units 12:45 06:35 06:35 WBC 9.92 H (4.23-9.07) K/mm3 RBC 5.37 (4.63-6.08) M/mm3 Hgb 15.0 (13.7-17.5) gm/dl Hct 45.2 (40.1-51.0) % MCV 84.2 (79.0-92.2) fl MCH 27.9 (25.7-32.2) pg MCHC 33.2 (32.2-35.5) g/dl RDW Std Deviation 39.2 (35.1-43.9) fL Plt Count 293 (163-337) K/mm3 MPV 10.9 (9.4-12.3) fl Neut % (Auto) 73.4 H (34.0-67.9) % Lymph % (Auto) 15.1 L (21.8-53.1) % Lanier % (Auto) 9.0 (5.3-12.2) % Eos % (Auto) 0.5 L (0.8-7.0) Baso % (Auto) 0.2 (0.1-1.2) % Neut # (Auto) 7.28 H (1.78-5.38) K/mm3 Lymph # (Auto) 1.50 (1.32-3.57) K/mm3 Lanier # (Auto) 0.89 H (0.30-0.82) K/mm3 Eos # (Auto) 0.05 (0.04-0.54) K/mm3 Baso # (Auto) 0.02 (0.01-0.08) K/mm3 Manual Slide Review Abnormal smear D-Dimer, Quantitative 0.56 H (0.19-0.50) mg/L Sodium (136-145) mEq/L Potassium (3.5-5.1) mEq/L Chloride (98-107) mEq/L Carbon Dioxide (21-32) mEq/L Anion Gap (5-15) BUN (7-18) mg/dL Creatinine (0.7-1.3) mg/dL Est Cr Clr Drug Dosing mL/min Estimated GFR (MDRD) (>60) mL/min BUN/Creatinine Ratio (14-18) Glucose (70-99) mg/dL Calcium (8.5-10.1) mg/dL Magnesium (1.8-2.4) mg/dL Total Bilirubin (0.2-1.0) mg/dL AST (15-37) U/L ALT (16-63) U/L Alkaline Phosphatase (46-116) U/L C-Reactive Protein (<1.0) mg/dL Total Protein (6.4-8.2) g/dl Albumin (3.4-5.0) g/dl Globulin gm/dL Albumin/Globulin Ratio (1-2) Procalcitonin 0.10 H ng/mL 06/09/21 Range/Units 06:35 WBC (4.23-9.07) K/mm3 RBC (4.63-6.08) M/mm3 Hgb (13.7-17.5) gm/dl Hct (40.1-51.0) % MCV (79.0-92.2) fl MCH (25.7-32.2) pg MCHC (32.2-35.5) g/dl RDW Std Deviation (35.1-43.9) fL Plt Count (163-337) K/mm3 MPV (9.4-12.3) fl Neut % (Auto) (34.0-67.9) % Lymph % (Auto) (21.8-53.1) % Lanier % (Auto) (5.3-12.2) % Eos % (Auto) (0.8-7.0) Baso % (Auto) (0.1-1.2) % Neut # (Auto) (1.78-5.38) K/mm3 Lymph # (Auto) (1.32-3.57) K/mm3 Lanier # (Auto) (0.30-0.82) K/mm3 Eos # (Auto) (0.04-0.54) K/mm3 Baso # (Auto) (0.01-0.08) K/mm3 Manual Slide Review D-Dimer, Quantitative (0.19-0.50) mg/L Sodium 138 (136-145) mEq/L Potassium 4.2 (3.5-5.1) mEq/L Chloride 103 (98-107) mEq/L Carbon Dioxide 27 (21-32) mEq/L Anion Gap 12.2 (5-15) BUN 25 H (7-18) mg/dL Creatinine 0.9 (0.7-1.3) mg/dL Est Cr Clr Drug Dosing 110.40 mL/min Estimated GFR (MDRD) > 60 (>60) mL/min BUN/Creatinine Ratio 27.8 H (14-18) Glucose 91 (70-99) mg/dL Calcium 8.4 L (8.5-10.1) mg/dL Magnesium 2.2 (1.8-2.4) mg/dL Total Bilirubin 0.5 (0.2-1.0) mg/dL AST 16 (15-37) U/L ALT 84 H (16-63) U/L Alkaline Phosphatase 55 (46-116) U/L C-Reactive Protein 2.2 H* (<1.0) mg/dL Total Protein 7.0 (6.4-8.2) g/dl Albumin 2.8 L (3.4-5.0) g/dl Globulin 4.2 gm/dL Albumin/Globulin Ratio 0.7 L (1-2) Procalcitonin ng/mL Med Orders - Current: Current Medications Discontinued Medications Acetaminophen (Acetaminophen 325 Mg Tab) 650 mg PO Q4H PRN PRN Reason: Pain (Mild 1-3)/fever Albuterol (Albuterol 6.7 Gm Inhaler) 0 gm INH Q2H PRN PRN Reason: SOB/Wheezing Last Admin: 06/09/21 06:16 Dose: 2 puff Documented by: Albuterol/Ipratropium (Albuterol/Ipratropium 3.0-0.5 Mg/3 Ml Neb Soln) 3 ml NEB QIDRT PRN PRN Reason: Shortness Of Breath/wheezing Benzonatate (Benzonatate 100 Mg Cap) 100 mg PO TID PRN PRN Reason: Cough Last Admin: 06/05/21 20:29 Dose: 100 mg Documented by: Dexamethasone (Dexamethasone 4 Mg Tab) 6 mg PO DAILY [facility] Stop: 06/11/21 09:01 Last Admin: 06/09/21 08:51 Dose: 6 mg Documented by: Docusate Sodium (Docusate Sodium 100 Mg Cap) 100 mg PO Q12H PRN PRN Reason: Constipation Enoxaparin Sodium (Enoxaparin 40 Mg/0.4 Ml Syringe) 40 mg SUBCUT DAILY [facility] Last Admin: 06/09/21 08:51 Dose: 40 mg Documented by: Famotidine (Famotidine 20 Mg Tab) 20 mg PO BID [facility] Last Admin: 06/09/21 08:51 Dose: 20 mg Documented by: Guaifenesin (Guaifenesin 600 Mg Tab.Er) 600 mg PO BID [facility] Last Admin: 06/09/21 08:51 Dose: 600 mg Documented by: Remdesivir 200 mg/ Sodium (Chloride) 250 mls @ 250 mls/hr IV ONETIME ONE Stop: 06/05/21 13:59 Last Admin: 06/05/21 14:35 Dose: 250 mls/hr Documented by: Remdesivir 100 mg/ Sodium (Chloride) 100 mls @ 100 mls/hr IV Q24H [facility] Stop: 06/09/21 13:59 Last Admin: 06/09/21 12:11 Dose: 100 mls/hr Documented by: Ondansetron HCl (Ondansetron 4 Mg/2 Ml Sdv) 4 mg IV Q6H PRN PRN Reason: Nausea/Vomiting Last Admin: 06/05/21 18:06 Dose: 4 mg Documented by: Zinc Sulfate (Zinc Sulfate 220 Mg Cap) 220 mg PO DAILY [facility] Last Admin: 06/09/21 08:51 Dose: 220 mg Documented by: - Patient Data Lab Results Last 24 hrs: Laboratory Results - last 24 hr 06/08/21 06/09/21 06/09/21 Range/Units 12:45 06:35 06:35 WBC 9.92 H (4.23-9.07) K/mm3 RBC 5.37 (4.63-6.08) M/mm3 Hgb 15.0 (13.7-17.5) gm/dl Hct 45.2 (40.1-51.0) % MCV 84.2 (79.0-92.2) fl MCH 27.9 (25.7-32.2) pg MCHC 33.2 (32.2-35.5) g/dl RDW Std Deviation 39.2 (35.1-43.9) fL Plt Count 293 (163-337) K/mm3 MPV 10.9 (9.4-12.3) fl Neut % (Auto) 73.4 H (34.0-67.9) % Lymph % (Auto) 15.1 L (21.8-53.1) % [place] % (Auto) 9.0 (5.3-12.2) % Eos % (Auto) 0.5 L (0.8-7.0) Baso % (Auto) 0.2 (0.1-1.2) % Neut # (Auto) 7.28 H (1.78-5.38) K/mm3 Lymph # (Auto) 1.50 (1.32-3.57) K/mm3 [place] # (Auto) 0.89 H (0.30-0.82) K/mm3 Eos # (Auto) 0.05 (0.04-0.54) K/mm3 Baso # (Auto) 0.02 (0.01-0.08) K/mm3 Manual Slide Review Abnormal smear D-Dimer, Quantitative 0.56 H (0.19-0.50) mg/L Sodium (136-145) mEq/L Potassium (3.5-5.1) mEq/L Chloride (98-107) mEq/L Carbon Dioxide (21-32) mEq/L Anion Gap (5-15) BUN (7-18) mg/dL Creatinine (0.7-1.3) mg/dL Est Cr Clr Drug Dosing mL/min Estimated GFR (MDRD) (>60) mL/min BUN/Creatinine Ratio (14-18) Glucose (70-99) mg/dL Calcium (8.5-10.1) mg/dL Magnesium (1.8-2.4) mg/dL Total Bilirubin (0.2-1.0) mg/dL AST (15-37) U/L ALT (16-63) U/L Alkaline Phosphatase (46-116) U/L C-Reactive Protein (<1.0) mg/dL Total Protein (6.4-8.2) g/dl Albumin (3.4-5.0) g/dl Globulin gm/dL Albumin/Globulin Ratio (1-2) Procalcitonin 0.10 H ng/mL 06/09/21 Range/Units 06:35 WBC (4.23-9.07) K/mm3 RBC (4.63-6.08) M/mm3 Hgb (13.7-17.5) gm/dl Hct (40.1-51.0) % MCV (79.0-92.2) fl MCH (25.7-32.2) pg MCHC (32.2-35.5) g/dl RDW Std Deviation (35.1-43.9) fL Plt Count (163-337) K/mm3 MPV (9.4-12.3) fl Neut % (Auto) (34.0-67.9) % Lymph % (Auto) (21.8-53.1) % [place] % (Auto) (5.3-12.2) % Eos % (Auto) (0.8-7.0) Baso % (Auto) (0.1-1.2) % Neut # (Auto) (1.78-5.38) K/mm3 Lymph # (Auto) (1.32-3.57) K/mm3 [place] # (Auto) (0.30-0.82) K/mm3 Eos # (Auto) (0.04-0.54) K/mm3 Baso # (Auto) (0.01-0.08) K/mm3 Manual Slide Review D-Dimer, Quantitative (0.19-0.50) mg/L Sodium 138 (136-145) mEq/L Potassium 4.2 (3.5-5.1) mEq/L Chloride 103 (98-107) mEq/L Carbon Dioxide 27 (21-32) mEq/L Anion Gap 12.2 (5-15) BUN 25 H (7-18) mg/dL Creatinine 0.9 (0.7-1.3) mg/dL Est Cr Clr Drug Dosing 110.40 mL/min Estimated GFR (MDRD) > 60 (>60) mL/min BUN/Creatinine Ratio 27.8 H (14-18) Glucose 91 (70-99) mg/dL Calcium 8.4 L (8.5-10.1) mg/dL Magnesium 2.2 (1.8-2.4) mg/dL Total Bilirubin 0.5 (0.2-1.0) mg/dL AST 16 (15-37) U/L ALT 84 H (16-63) U/L Alkaline Phosphatase 55 (46-116) U/L C-Reactive Protein 2.2 H* (<1.0) mg/dL Total Protein 7.0 (6.4-8.2) g/dl Albumin 2.8 L (3.4-5.0) g/dl Globulin 4.2 gm/dL Albumin/Globulin Ratio 0.7 L (1-2) Procalcitonin ng/mL Result Diagrams: 06/09/21 06:35 06/09/21 06:35 Sepsis Event Note - Focused Exam Vital Signs: Vital Signs Temp Pulse Resp BP Pulse Ox Pulse Ox 06/09/21 12:00 93 L 06/09/21 08:36 36.6 C 74 17 127/65 93 L 06/09/21 06:17 89 L - Free Text/Narrative Note: I have seen and examined the patient independently of Vicente Ramires PA-C. I bates ve discussed the case with him and reviewed and agree with the plan of care as outlined by him. Please see orders.
[2021-06-08] MEDS: REMDESIVIR 100 MG in Sodium Chloride 0.9% 100 ML IV SCH (13:38)
[2021-06-09] MEDS: Albuterol 6.7 GM Inhaler INH PRN (06:16)
[2021-06-09] MEDS: Enoxaparin 40 MG/0.4 ML Syringe SUBCUT SCH (08:51)
[2021-06-09] MEDS: Zinc Sulfate 220 MG Cap PO SCH (08:51)
[2021-06-09] MEDS: guaiFENesin 600 MG Tab.ER PO SCH (08:51)
[2021-06-09] MEDS: Famotidine 20 MG Tab PO SCH (08:51)
[2021-06-09] MEDS: Dexamethasone 4 MG Tab PO SCH (08:51)
--- NOTE | 2021-06-09 09:24 | PCM.DCSUM1 ---
Discharge Summary - Hospital Course HPI Initial Comments: The patient was admitted secondary to acute respiratory failure due to COVID-19 pneumonia. Diagnosis: Stroke: No - Discharge Data Discharge Date: 06/09/21 Discharge Disposition: Home, Self-Care 01 Condition: Good - Referral to Home Health Primary Care Physician: PCP None - Patient Summary/Data Consults: Consultations 06/05/21 12:14 Respiratory Care Assess and Treatment [CONS] Routine Hospital Course: the pneumonia. The patient is a 41-year-old gentleman who had presented to the emergency department with worsening COVID-19 pneumonia symptoms. Patient symptoms began on May 27, 2021. He was diagnosed with this on June 02, 2021. The patient had been treated as an outpatient with albuterol, dexamethasone, Tessalon and Zofran. The patient did have some nausea and vomiting associated with this. Upon arrival in the emergency department the patient's oxygen saturations had been around 86% at rest and had dropped to 77% with ambulation. The patient had been started on DuoNebs as well as Proventil to help with his breathing. To help control his nausea and vomiting Zofran was offered. The patient also had been started on remdesivir 200 mg initially and 100 mg daily for total of 4 doses that ended June 09, 2021. The patient tolerated this well. The patient's oxygen saturations had remained stable between 89 and 93% to his course of hospitalization. The patient had a chest x- ray which was completed on June 05, 2021 which was read by radiology as patchy areas of increased density on both sides of the chest as an interval change from his prior exam. The findings were suspicious for COVID-19 pneumonia. The patient also had elevations of his white blood cell count at 11,000 and this had remained fairly normalized to around 9000. Day of discharge the patient had been on room air. He was recommended to continue with his home supply of dexamethasone and a azithromycin that he has available. The patient also had a diet as tolerated. The patient has been recommended to continue with this. The patient also is to have activity as tolerated. Patient has improved to the point that he can safely go home and he is hemodynamically stable and he has been discharged from acute hospitalization with the recommendations listed above. The patient is also to follow-up with his primary care physician. - Patient Instructions Diet: Usual Diet as Tolerated Activity: As Tolerated Notify Provider of: Fever, Increased Pain - Discharge Plan *PRESCRIPTION DRUG MONITORING PROGRAM REVIEWED*: Not Applicable *COPY OF PRESCRIPTION DRUG MONITORING REPORT IN PATIENT SYLVIA: Not Applicable Home Medications: Home Meds Benzonatate [Tessalon Perle] 100 mg PO TID PRN #12 capsule 06/02/21 [Rx] Ondansetron [Zofran ODT] 4 mg PO Q6H PRN #12 tab.dis 06/02/21 [Rx] dexAMETHasone [Dexamethasone] 6 mg PO DAILY #15 tablet 06/02/21 [Rx] Albuterol Sulfate [Proair Digihaler] 2 puff INH ASDIRECTED 06/05/21 [History] Oxygen Therapy Mode: Room Air Patient Handouts: COVID-19 Frequently Asked Questions, COVID-19, 10 Things You Can Do to Manage Your COVID-19 Symptoms at Home - [facility] (03/30/2021) Referrals: Padmini Joshi MD [Ordering Only Provider] - 06/19/21 3:15 pm (this is your check in time for a 3:30 pm appointment, this is the soonest you could get in to see any provider at [place].) - Discharge Summary/Plan Comment DC Time >30 min.: Yes Total # of Minutes for Discharge Time: 40 - General Info Date of Service: 06/09/21 Admission Dx/Problem (Free Text: Admission Diagnosis/Problem Admission Diagnosis/Problem Hypoxia Subjective Update: The patient was admitted secondary to hypoxia and COVID-19 pneumonia. The patient has improved to the point that he feels can go home. He is currently on room air. He does have dexamethasone and a azithromycin at home. Functional Status: Reports: Pain Controlled, Tolerating Diet - Review of Systems General: Reports: No Symptoms HEENT: Reports: No Symptoms Pulmonary: Reports: No Symptoms Cardiovascular: Reports: No Symptoms Gastrointestinal: Reports: No Symptoms Genitourinary: Reports: No Symptoms Musculoskeletal: Reports: No Symptoms Skin: Reports: No Symptoms Neurological: Reports: No Symptoms Psychiatric: Reports: No Symptoms - Patient Data Vitals - Most Recent: Last Vital Signs Temp 36.6 C 06/09/21 04:01 Pulse 61 06/09/21 04:01 Resp 16 06/09/21 04:01 BP 114/73 06/09/21 04:01 Pulse Ox 89 L 06/09/21 06:17 Weight - Most Recent: 93.667 kg I&O - Last 24 hours: Intake & Output 06/08/21 06/09/21 06/09/21 22:59 06:59 14:59 Intake Total 1700 800 Balance 1700 800 Lab Results - Last 24 hrs: Laboratory Results - last 24 hr 06/08/21 06/09/21 06/09/21 Range/Units 12:45 06:35 06:35 WBC 9.92 H (4.23-9.07) K/mm3 RBC 5.37 (4.63-6.08) M/mm3 Hgb 15.0 (13.7-17.5) gm/dl Hct 45.2 (40.1-51.0) % MCV 84.2 (79.0-92.2) fl MCH 27.9 (25.7-32.2) pg MCHC 33.2 (32.2-35.5) g/dl RDW Std Deviation 39.2 (35.1-43.9) fL Plt Count 293 (163-337) K/mm3 MPV 10.9 (9.4-12.3) fl Neut % (Auto) 73.4 H (34.0-67.9) % Lymph % (Auto) 15.1 L (21.8-53.1) % [place] % (Auto) 9.0 (5.3-12.2) % Eos % (Auto) 0.5 L (0.8-7.0) Baso % (Auto) 0.2 (0.1-1.2) % Neut # (Auto) 7.28 H (1.78-5.38) K/mm3 Lymph # (Auto) 1.50 (1.32-3.57) K/mm3 [place] # (Auto) 0.89 H (0.30-0.82) K/mm3 Eos # (Auto) 0.05 (0.04-0.54) K/mm3 Baso # (Auto) 0.02 (0.01-0.08) K/mm3 D-Dimer, Quantitative 0.56 H (0.19-0.50) mg/L Sodium (136-145) mEq/L Potassium (3.5-5.1) mEq/L Chloride (98-107) mEq/L Carbon Dioxide (21-32) mEq/L Anion Gap (5-15) BUN (7-18) mg/dL Creatinine (0.7-1.3) mg/dL Est Cr Clr Drug Dosing mL/min Estimated GFR (MDRD) (>60) mL/min BUN/Creatinine Ratio (14-18) Glucose (70-99) mg/dL Calcium (8.5-10.1) mg/dL Magnesium (1.8-2.4) mg/dL Total Bilirubin (0.2-1.0) mg/dL AST (15-37) U/L ALT (16-63) U/L Alkaline Phosphatase (46-116) U/L C-Reactive Protein (<1.0) mg/dL Total Protein (6.4-8.2) g/dl Albumin (3.4-5.0) g/dl Globulin gm/dL Albumin/Globulin Ratio (1-2) Procalcitonin 0.10 H ng/mL 06/09/21 Range/Units 06:35 WBC (4.23-9.07) K/mm3 RBC (4.63-6.08) M/mm3 Hgb (13.7-17.5) gm/dl Hct (40.1-51.0) % MCV (79.0-92.2) fl MCH (25.7-32.2) pg MCHC (32.2-35.5) g/dl RDW Std Deviation (35.1-43.9) fL Plt Count (163-337) K/mm3 MPV (9.4-12.3) fl Neut % (Auto) (34.0-67.9) % Lymph % (Auto) (21.8-53.1) % [place] % (Auto) (5.3-12.2) % Eos % (Auto) (0.8-7.0) Baso % (Auto) (0.1-1.2) % Neut # (Auto) (1.78-5.38) K/mm3 Lymph # (Auto) (1.32-3.57) K/mm3 [place] # (Auto) (0.30-0.82) K/mm3 Eos # (Auto) (0.04-0.54) K/mm3 Baso # (Auto) (0.01-0.08) K/mm3 D-Dimer, Quantitative (0.19-0.50) mg/L Sodium 138 (136-145) mEq/L Potassium 4.2 (3.5-5.1) mEq/L Chloride 103 (98-107) mEq/L Carbon Dioxide 27 (21-32) mEq/L Anion Gap 12.2 (5-15) BUN 25 H (7-18) mg/dL Creatinine 0.9 (0.7-1.3) mg/dL Est Cr Clr Drug Dosing 110.40 mL/min Estimated GFR (MDRD) > 60 (>60) mL/min BUN/Creatinine Ratio 27.8 H (14-18) Glucose 91 (70-99) mg/dL Calcium 8.4 L (8.5-10.1) mg/dL Magnesium 2.2 (1.8-2.4) mg/dL Total Bilirubin 0.5 (0.2-1.0) mg/dL AST 16 (15-37) U/L ALT 84 H (16-63) U/L Alkaline Phosphatase 55 (46-116) U/L C-Reactive Protein 2.2 H* (<1.0) mg/dL Total Protein 7.0 (6.4-8.2) g/dl Albumin 2.8 L (3.4-5.0) g/dl Globulin 4.2 gm/dL Albumin/Globulin Ratio 0.7 L (1-2) Procalcitonin ng/mL Med Orders - Current: Current Medications Acetaminophen (Acetaminophen 325 Mg Tab) 650 mg PO Q4H PRN PRN Reason: Pain (Mild 1-3)/fever Albuterol (Albuterol 6.7 Gm Inhaler) 0 gm INH Q2H PRN PRN Reason: SOB/Wheezing Last Admin: 06/09/21 06:16 Dose: 2 puff Documented by: Albuterol/Ipratropium (Albuterol/Ipratropium 3.0-0.5 Mg/3 Ml Neb Soln) 3 ml NEB QIDRT PRN PRN Reason: Shortness Of Breath/wheezing Benzonatate (Benzonatate 100 Mg Cap) 100 mg PO TID PRN PRN Reason: Cough Last Admin: 06/05/21 20:29 Dose: 100 mg Documented by: Dexamethasone (Dexamethasone 4 Mg Tab) 6 mg PO DAILY [facility] Stop: 06/11/21 09:01 Last Admin: 06/08/21 09:04 Dose: 6 mg Documented by: Docusate Sodium (Docusate Sodium 100 Mg Cap) 100 mg PO Q12H PRN PRN Reason: Constipation Enoxaparin Sodium (Enoxaparin 40 Mg/0.4 Ml Syringe) 40 mg SUBCUT DAILY [facility] Last Admin: 06/08/21 09:04 Dose: 40 mg Documented by: Famotidine (Famotidine 20 Mg Tab) 20 mg PO BID [facility] Last Admin: 06/08/21 21:28 Dose: 20 mg Documented by: Guaifenesin (Guaifenesin 600 Mg Tab.Er) 600 mg PO BID [facility] Last Admin: 06/08/21 21:28 Dose: 600 mg Documented by: Remdesivir 100 mg/ Sodium (Chloride) 100 mls @ 100 mls/hr IV Q24H [facility] Stop: 06/09/21 13:59 Last Admin: 06/08/21 13:38 Dose: 100 mls/hr Documented by: Ondansetron HCl (Ondansetron 4 Mg/2 Ml Sdv) 4 mg IV Q6H PRN PRN Reason: Nausea/Vomiting Last Admin: 06/05/21 18:06 Dose: 4 mg Documented by: Zinc Sulfate (Zinc Sulfate 220 Mg Cap) 220 mg PO DAILY [facility] Last Admin: 06/08/21 09:04 Dose: 220 mg Documented by: Discontinued Medications Remdesivir 200 mg/ Sodium (Chloride) 250 mls @ 250 mls/hr IV ONETIME ONE Stop: 06/05/21 13:59 Last Admin: 06/05/21 14:35 Dose: 250 mls/hr Documented by: - Exam Quality Assessment: Denies: Supplemental Oxygen, DVT Prophylaxis General: Reports: Alert, Oriented, Cooperative, No Acute Distress HEENT: Reports: Pupils Equal, Pupils Reactive, EOMI, Mucous Membr. Moist/[place] Neck: Reports: Supple, Trachea Midline Lungs: Reports: Clear to Auscultation, Normal Respiratory Effort Cardiovascular: Reports: Regular Rate, Regular Rhythm, No Murmurs GI/Abdominal Exam: Normal Bowel Sounds, Soft, Non-Tender, No Distention (Male) Exam: Deferred Rectal (Males) Exam: Deferred Back Exam: Reports: Normal Inspection, Full Range of Motion Extremities: Normal Inspection, Normal Range of Motion, No Pedal Edema Skin: Reports: Warm, Dry, Intact Neurological: Reports: No New Focal Deficit, Normal Gait, Normal Speech Psy/Mental Status: Reports: Alert, Normal Affect, Normal Mood
[2021-06-09] MEDS: REMDESIVIR 100 MG in Sodium Chloride 0.9% 100 ML IV SCH (12:11)
== END 2021-06-09 13:29 | disposition home or self-care (01) | DRG 137 ==
LOC: JD.ED 08:01 → JD.MS 11:51
PROVIDERS: ADMIT Internal Medicine; ATTEND Internal Medicine
PROC: 8E0ZXY6 Isolation (ICD-10-PCS; principal; 2021-06-05)
PROC: XW033E5 Introduction of Remdesivir Anti-infective into Peripheral Vein, Percutaneous Approach, New Technology Group 5 (ICD-10-PCS; 2021-06-05)
PROC: 3E0DX3Z Introduction of Anti-inflammatory into Mouth and Pharynx, External Approach (ICD-10-PCS; 2021-06-05)
DX: U07.1 COVID-19 (principal); J12.82 Pneumonia due to coronavirus disease 2019; J96.01 Acute respiratory failure with hypoxia; H54.7 Unspecified visual loss; Z88.1 Allergy status to other antibiotic agents; Z79.899 Other long term (current) drug therapy; Z87.891 Personal history of nicotine dependence
CPT/HCPCS: 36415; 71045; 71045-26; 80048; 80053; 80076; 82306; 82728; 83605; 83615; 83735; 84145; 85025; 85379; 85610; 85730; 86140; 87040; 93005; 93010; 94640; 94668; 94762; 99285; 99285-25; A9270-GY; J1650; J2405; J7050; J8540